=== PATIENT | male | born 1955 | race Caucasian/White ===

== ENCOUNTER 2022-07-14 11:39 | Inpatient (IN) ==
--- NOTE | 2022-07-14 12:03 | Emergency Department Note ---
Impression & Plan Peripheral arterial disease, DVT (deep venous thrombosis), engine mechanic (current) use of anticoagulants, Popliteal artery occlusion, right ED Provider Note Provider: João Andrew MD DATE OF SERVICE: 07/14/2022 CHIEF COMPLAINT: Right foot pain HISTORY OF PRESENT ILLNESS: Patient is a 67-year-old gentleman history of DVT, hypertension, tobacco use, and left lower extremity amputation presenting here today with 3 to 4 days of some pain in the right foot. Went to [facility] today for evaluation. Had blood work. There are some question based on the records available from [place] to bring with him with the patient had a recent subtherapeutic INR for his Coumadin but today it was slightly high. Evidently ultrasound there showed some evidence of a popliteal artery thrombus b ut reconstitution distally and he is recommended to follow-up with vascular surgery as an outpatient. Had prior vascular procedures with vascular surgery here and thus came here for further evaluation. Patient has had some on and off pain of the right foot. Feels gross sensation of the toes. Denies any trauma. Denies any other systemic symptoms of difficulty breathing, fever, chest pain, or abdominal pain. Amputation of the left leg above the knee in [address] Bolaños PAST MEDICAL HISTORY: As noted above MEDICATIONS: Reviewed home medications includes Coumadin but no antiplatelet agents SOCIAL HISTORY: Smoker PHYSICAL EXAM: GENERAL: alert and oriented in no acute distress on stretcher Head: normocephalic and atraumatic EYES: No injection, discharge or icterus. NECK: Trachea midline. ENT: Mucous membranes pink and moist. LUNGS: Airway patent. No retractions. Breath sounds clear with good air entry bilaterally. HEART: Regular rate and rhythm. No chest wall tenderness ABDOMEN: Soft and non-tender, without guarding or rebound. SKIN: Acyanotic, warm, dry, without rashes EXTREMITIES: With a left AKA. Patient's right lower extremity with some purplish discoloration of the sole of the foot into the toes. Some capillary refill there in under 2 seconds. Feels gross sensation. Unable to truly palpitate a PT or DP pulse. NEUROLOGICAL: No aphasia or slurred speech. No facial droop. Intact sensation of the right toes. EK bpm normal sinus rhythm. No PVC or PAC. No acute ST segment elevation or depression with a QTC of 437. CONTINUOUS CARDIAC MONITORING: was ordered and showed a heart rate of 60s-70s bpm in normal sinus rhythm Patient's laboratory studies and imaging reviewed. Differential includes DVT, musculoskeletal, infection, joint effusion, trauma, lymphedema, idiopathic, CHF, as well as other pathologies. IMPRESSION/MEDICAL DECISION MAKING: Patient with some pain in the right foot over the last several days. Pain mild at this point. Seen at outside hospital/[place] earlier today with a supratherapeutic INR. Ultrasound reportedly showed evidence of a popliteal artery thrombus with distal recall patient and was recommended to follow-up with vascular surgery as an outpatient and start aspirin. Patient came here for evaluation as he had prior vascular procedures here today. Presents with disc of the arterial ultrasound. Has intact sensation of the right toes but some purplish discoloration but there is capillary refill. Repeat blood work was sent here. Attempted obtain the formal report from the ultrasound at the outside facility today. US reports arrived showing a venous and arterial ultrasound of the right lower extremity showing evidence of a DVT in the proximal femoral vein to the posterior tibial vein occlusive in the midportion of the femoral vein and within the posterior tibial vein. The arterial shows evidence of occlusion or near occlusion at the distal portion of the popliteal artery through the tibial peroneal trunk and the anterior tibial artery. There is diminished arterial flow through the posterior tibial and dorsal pedis arteries likely via collateral circulation. Monophasic waveforms demonstrated in the PT and DP with no evidence of more proximal arterial structure high-grade stenosis. Unable to Doppler PT or DP pulses in the right foot. Discussed with the vascular surgery team here. Did upload the ultrasound images to our PACS system. Vascular YESI recommended we bring the patient him and start a heparin drip. Hospitalist was contacted. Basic blood work obtained here with an INR of 2.7 without significant anemia or leukocytosis. Patient given little to morphine for again his mild discomfort in his foot but is able to move his toes and has mildly delayed but intact capillary refill of the toes. DIAGNOSIS: Right lower extremity DVT, long-term anticoagulation, right popliteal artery thrombus, right foot pain DISPOSITION: Hospitalist will evaluate Patient was agreeable with this plan. 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 that worsened d/t DVT Family History Other No family history of adverse response to anesthesia Social History Smoking Status: Current every day smoker Second Hand Exposure: Yes ( smokes); Hx Alcohol Use: No (quit 2017) Hx Substance Use: Yes (smokes marijuana once or twice a month) Last Used Substance: Unknown Preferred Language: Pashto Communication Ability: Effective 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 Beliefs That Will Affect Care: None Current Living Situation: Spouse and Family Current Living Situation Comment: Lives with and son Feels Safe at Home: Yes Assistive Devices: Denture - Upper, Denture - Lower and Wheelchair Allergies Allergies Allergy/AdvReac Type Severity Reaction Status Date / Time No Known Allergies Allergy Verified 07/11/18 10:09 Home Meds Home Medications Medication Instructions Recorded Confirmed budesonide-formoterol HFA 160 1 puff inhalation BID 07/09/18 07/14/22 mcg-4.5 mcg/actuation aerosol inhaler (Symbicort) citalopram 40 mg tablet 10 mg PO HS 07/09/18 07/14/22 furosemide 40 mg tablet 20 mg PO QAM 07/09/18 07/14/22 ipratropium 20 mcg-albuterol 100 1 puff inhalation QID 07/09/18 07/14/22 mcg/actuation mist for inhalation lisinopril 20 mg tablet 20 mg PO QAM 07/09/18 07/14/22 omeprazole 20 mg tablet,delayed 20 mg PO BID 07/09/18 07/14/22 release warfarin 5 mg tablet See Rx Instructions .Route .COMPLEX 07/09/18 07/11/18 Results & Data (ED) Vital Signs Vital Signs - 24 hr 07/14/22 11:42 07/14/22 12:15 Temperature 36.5 C Temperature Source Temporal Artery Scan Pulse Rate 77 Respiratory Rate 16 16 Respiratory Effort / Characteristics Non-Labored Non-Labored Respiratory Depth Normal Normal Respiratory Pattern Regular Blood Pressure 180/85 H Blood Pressure Mean 116 Pulse Oximetry 98 Oxygen Delivery Method Room Air Sepsis Recent Fever Within 48 Hours No Sepsis New/Unexplained Change in Mental Status No Sepsis Action Taken by Nursing No Action Required Laboratory Data 07/14/22 12:10 07/14/22 12:10 Lab Results 07/14/22 07/14/22 07/14/22 Range/Units 12:10 12:10 12:10 WBC 6.80 (4.8-10.8) K/ul RBC 4.66 (4.63-6.08) M/uL Hgb 15.5 (14.0-18.0) g/dl Hct 42.9 (40.1-51.0) % MCV 92.1 (80.0-100.0) fL MCH 33.3 (25.0-34.0) pg MCHC 36.1 H (32.0-36.0) g/dL RDW Std Deviation 45.6 (36.4-46.3) fL RDW Coeff of Mala 13.4 (11.5-14.5) % Plt Count 237 (130-400) K/uL MPV 9.7 (9.4-12.4) fL Immature Gran % (Auto) 0.4 % Neut % (Auto) 59.2 % Lymph % (Auto) 31.2 % Rose[place] % (Auto) 7.1 % Eos % (Auto) 1.5 % Baso % (Auto) 0.6 % Neut # (Auto) 4.03 (1.4-6.5) K/uL Lymph # (Auto) 2.12 (1.2-3.4) K/uL Rose[place] # (Auto) 0.48 (0.24-0.82) K/uL Eos # (Auto) 0.10 (0-0.50) K/uL Baso # (Auto) 0.04 (0-0.2) K/uL Immature Gran # (Auto) 0.03 H (0.00-0.02) K/uL PT 26.9 H (9.0-12.0) Seconds INR 2.7 H (0.9-1.1) APTT 43.6 H (21.0-31.0) Seconds PTT Ratio 1.6 Sodium 139 (136-145) mmol/L Potassium 3.7 (3.5-5.1) mmol/L Chloride 102 (98-107) mmol/L Carbon Dioxide 29 (21-32) mmol/L Anion Gap 8 (3-11) BUN 9 (6-23) mg/dl Creatinine 0.87 (0.6-1.4) mg/dl Est Cr Clr Drug Dosing Not Reportable Est GFR ( Amer) 102.8 ml/min Est GFR (Non-Af Amer) 88.7 ml/min BUN/Creatinine Ratio 10.3 (10-20) Glucose 118 H (70-99(Fasting)) mg/dl Calcium 8.7 (8.5-10.1) mg/dl Total Bilirubin 0.6 (0.2-1.0) mg/dl AST 18 (13-39) U/L ALT 9 (7-52) U/L Alkaline Phosphatase 48 (34-104) U/L Total Protein 7.5 (6.0-8.3) gm/dl Albumin 4.3 (3.4-5.0) gm/dl Globulin 3.2 (2.5-4.0) gm/dl Albumin/Globulin Ratio 1.3 (0.9-2) SARS-CoV-2, RNA, NAAT (NEGATIVE) 07/14/22 Range/Units 12:10 WBC (4.8-10.8) K/ul RBC (4.63-6.08) M/uL Hgb (14.0-18.0) g/dl Hct (40.1-51.0) % MCV (80.0-100.0) fL MCH (25.0-34.0) pg MCHC (32.0-36.0) g/dL RDW Std Deviation (36.4-46.3) fL RDW Coeff of Mala (11.5-14.5) % Plt Count (130-400) K/uL MPV (9.4-12.4) fL Immature Gran % (Auto) % Neut % (Auto) % Lymph % (Auto) % Roseau % (Auto) % Eos % (Auto) % Baso % (Auto) % Neut # (Auto) (1.4-6.5) K/uL Lymph # (Auto) (1.2-3.4) K/uL Rose[place] # (Auto) (0.24-0.82) K/uL Eos # (Auto) (0-0.50) K/uL Baso # (Auto) (0-0.2) K/uL Immature Gran # (Auto) (0.00-0.02) K/uL PT (9.0-12.0) Seconds INR (0.9-1.1) APTT (21.0-31.0) Seconds PTT Ratio Sodium (136-145) mmol/L Potassium (3.5-5.1) mmol/L Chloride (98-107) mmol/L Carbon Dioxide (21-32) mmol/L Anion Gap (3-11) BUN (6-23) mg/dl Creatinine (0.6-1.4) mg/dl Est Cr Clr Drug Dosing Est GFR ( Amer) ml/min Est GFR (Non-Af Amer) ml/min BUN/Creatinine Ratio (10-20) Glucose (70-99(Fasting)) mg/dl Calcium (8.5-10.1) mg/dl Total Bilirubin (0.2-1.0) mg/dl AST (13-39) U/L ALT (7-52) U/L Alkaline Phosphatase (34-104) U/L Total Protein (6.0-8.3) gm/dl Albumin (3.4-5.0) gm/dl Globulin (2.5-4.0) gm/dl Albumin/Globulin Ratio (0.9-2) SARS-CoV-2, RNA, NAAT NEGATIVE (NEGATIVE) Administered Medications Heparin Sodium/Dextrose (Heparin Sodium/Dextrose) 25,000 units in 500 mls @ 22 mls/hr IV .[id number] [facility]; Protocol Stop: 08/13/22 13:14 Last Titration: 07/14/22 18:11 Dose: 1,100 units/hr, 22 mls/hr Documented By: ERIK Co-signed By: NICOLASA Admin: 07/14/22 14:09 Dose: 1,100 units/hr, 22 mls/hr Documented By: SR Co-signed By: TOHONO O'ODHAM Lactated Ringer's (Lr) 1,000 mls @ 125 mls/hr IV .Q8H SIN Stop: 08/13/22 18:09 Last Admin: 07/14/22 18:31 Dose: 125 mls/hr Documented By: MTM Discontinued Medications Heparin Sodium/Dextrose (Heparin Iv Adult Wt-Based Standard *No* Bolus Protocol) 1 each IV ONE ONE; Protocol Stop: 07/14/22 12:50 Last Admin: 07/14/22 14:10 Dose: Not Given Documented By: SR Hydralazine HCl (Hydralazine 10 Mg Tab) 10 mg PO ONE ONE Stop: 07/14/22 13:42 Last Admin: 07/14/22 14:10 Dose: 10 mg Documented By: SR Morphine Sulfate (Morphine Sulfate 4 Mg/Ml 1 Ml Carp\Vial) 4 mg IV NOW STA Stop: 07/14/22 12:36 Last Admin: 07/14/22 12:54 Dose: 4 mg Documented By: TOHONO O'ODHAM Discharge Plan Visit Data Chief Complaint: Leg Injury/Pain Stated Complaint: BLOOD CLOTS R LEG ED Provider: João Andrew Discharge Problem: Peripheral arterial disease, DVT (deep venous thrombosis), engine mechanic (current) use of anticoagulants, Popliteal artery occlusion, right Patient Disposition: Admitted As Inpatient Discharge Instructions Interventions: ED Discharge Assessment Last Done: 07/14/22 17:35 : DVT (deep venous thrombosis) Qualifiers: DVT location: lower extremity Laterality: right
[2022-07-14 12:29] LABS: Basophils # (auto) 0.04 K/uL (0-0.2); Basophils % (auto) 0.6 %; Eosinophils % (auto) 1.5 %; Hematocrit (blood only) 42.9 % (40.1-51.0); Hemoglobin 15.5 g/dl (14.0-18.0); Immature Granulocytes # (auto) 0.03 K/uL (0.00-0.02); Immature Granulocytes % (auto) 0.4 %; Lymphocytes # (auto) 2.12 K/uL (1.2-3.4); Lymphocytes % (auto) 31.2 %; Mean Corpuscular Hemoglobin 33.3 pg (25.0-34.0); Mean Corpuscular Hgb Conc 36.1 g/dL (32.0-36.0); Mean Corpuscular Volume 92.1 fL (80.0-100.0); Mean Platelet Volume 9.7 fL (9.4-12.4); Monocytes # (auto) 0.48 K/uL (0.24-0.82); Monocytes % (auto) 7.1 %; Neutrophils # (auto) 4.03 K/uL (1.4-6.5); Neutrophils % (auto) 59.2 %; Platelet Count 237 K/uL (130-400); RDW Coefficient of Variation 13.4 % (11.5-14.5); RDW Standard Deviation 45.6 fL (36.4-46.3); Red Blood Count 4.66 M/uL (4.63-6.08)
[2022-07-14] MEDS ORDERED: MoRPHine SULFATE 4 MG/ML 1 ML CARP\\VIAL IV STA (12:35)
[2022-07-14] MEDS ORDERED: Heparin IV Adult Wt-Based Standard *NO* Bolus Protocol IV ONE (12:49)
--- NOTE | 2022-07-14 12:54 | History & Physical Report ---
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 Thrombus appears occlusive in the midportion of the femoral vein as well as the posterior tibial vein. 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 Remaining structures show no additional thrombus. Impression: DVT extending from the proximal femoral vein through posterior tibial vein, occlusive in the midportion of the femoral vein and within the posterior tibial vein. Duplex completed 07/14/2022 at 8:36 AM. - Ultrasound lower extremity arterial duplex right, 07/14/2022 8:40 AM:: There is no detectable arterial flow in the distal portion of the popliteal artery thro ugh the tibioperoneal trunk and anterior tibial artery. Posterior tibial and dorsalis pedis arteries demonstrate dampened, monophasic waveforms. More proximal arterial structures show no evidence of high-grade stenosis. Impression: Occlusion or near occlusion from the distal portion of the popliteal artery, through the tibioperoneal trunk, and the anterior tibial artery. Diminished arterial flow through the posterior tibial and dorsalis pedis arteries likely via collateral circulation. -Patient reports several days of intermittent throbbing up to 8/10 right foot pain which worsens with attempted use. No pain at time of assessment, no PT/DP pulses capillary refill is sluggish around 2 seconds INR at [facility] 3.6, in house repeat 2.7 Vascular surgery consulted. NPO. Started on heparin drip. Given INR now in therapeutic range bolus deferred, INR reversal deferred at time of admission. Warfarin held Continue neurovascular checks Continue pain control, Tylenol with morphine for breakthrough Meds: Omeprazole 20mg daily, lisinopril 20mg am, Citalopram 10mg daily, warfarin, lasix 20mg daily. Hypertension Home lisinopril 20 mg held in the setting of possible vascular surgery Hydralazine 25 mg IV as needed for SBP greater than 180 GERD Convert omeprazole to Protonix daily Anxiety/depression Continue citalopram 10 mg daily Lower extremity edema Patient denies any history of heart attack, heart failure, CT but does take Lasix for lower extremity swelling. Lasix held COPD Patient reports he has a Symbicort inhaler and a albuterol inhaler but has not used this in several weeks/months. Denies any wheezing or shortness of breath. No acute exacerbation on admission Would resume daily maintenance inhaler on discharge and follow-up for routine outpatient follow-up, no acute management of COPD indicated at this time DVT prophylaxis: Heparin GTT CODE STATUS: Full code Disposition M/T for neurochecks Diet: N.p.o. (2) DVT (deep venous thrombosis): (3) Ischemic leg: (4) Peripheral arterial disease: (5) Chronic obstructive pulmonary disease: (6) GERD (gastroesophageal reflux disease): History of Present Illness Primary Care Provider: Gagan Dee MD Per record review at [facility] Ultrasound lower extremity venous duplex): Echogenic thrombus is seen extending from the proximal portion of the femoral vein through the tibioperoneal trunk and posterior tibial vein. Thrombus appears occlusive in the midportion of the femoral vein as well as the posterior tibial vein. 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 Remaining structures show no additional thrombus. Impression: DVT extending from the proximal femoral vein through posterior tibial vein, occlusive in the midportion of the femoral vein and within the posterior tibial vein. Duplex completed 07/14/2022 at 8:36 AM. Ultrasound lower extremity arterial duplex right, 07/14/2022 8:40 AM:: There is no detectable arterial flow in the distal portion of the popliteal artery through the tibioperoneal trunk and anterior tibial artery. Posterior tibial and dorsalis pedis arteries demonstrate dampened, monophasic waveforms. More proximal arterial structures show no evidence of high-grade stenosis. Impression: Occlusion or near occlusion from the distal portion of the popliteal artery, through the tibioperoneal trunk, and the anterior tibial artery. Diminished arterial flow through the posterior tibial and dorsalis pedis arteries likely via collateral circulation. Patient presented to [facility] emergency department for right foot pain of 1 week with throbbing nonradiating quality. Worse with weightbearing and exertion, no injury to the foot. Left AKA due to DVTs in the past. He is on Coumadin, was subtherapeutic several days ago and supratherapeutic on his check at the ER. At time of ER evaluation patient had brisk capillary refill and strong DP/PT pulses INR: 3.6. WBC 9.3. Hemoglobin 14.7. Creatinine 0.97 Patient DVT was felt to be Per pt: "A lot of pain in my right foot for 3-5 days". 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 Since that time has been on coumadin and did not have any issues with blood clots in the last few years. Was otherwise well until 3-5 days ago when R foot became muc h more painful. Thought it was new steps/sneakers, but had progressive pain in the R foot and ankle which was persistent and unremitting. Was seen in [place] and was going to be sent to [place], they did not want to be treated there so drove to [place] for vascular evaluation. Pain is intermittent, goes away with rest and worsens with activity. 8-9/10 at worst, 0/10 at time of bedside assessment. Foot intermittently feels 'asleep, like tingling'. NOrmal sensation to soft touch at time of exam. No ulcers or skin wounds No shortness of breath, no chest pain, fever, chills, night sweats, nausea, vomiting or diarrhea. No cough. INR low this past week, normally checks Q2W. Meds: Omeprazole 20mg daily, lisinopril 20mg am, Citalopram 10mg daily, warfarin, lasix 20mg daily. Warfarin: 7.5mg 5x/week, 10mg 2x/week. Denies missed doses. Symbicort, no recent use. No recent wheezing. Medical History: Reviewed Medications: Reviewed Surgical History: Reviewed Allergies: Reviewed Social History: no alcohol. Current smoker, started 1 year ago after quitting for 3 yeras, smoked since age 14. ~0.5ppd currently. Would like a nicotine patch. Code Status: Full Code Allergies Allergy/AdvReac Type Severity Reaction Status Date / Time No Known Allergies Allergy Verified 07/11/18 10:09 Home Medications Medication Instructions Recorded Confirmed Type alprazolam 0.5 mg tablet 0.5 mg PO DAILY PRN Anxiety 07/09/18 07/11/18 History budesonide-formoterol HFA 160 1 puff inhalation BID 07/09/18 07/11/18 History mcg-4.5 mcg/actuation aerosol inhaler (Symbicort) cilostazol 100 mg tablet 100 mg PO BID 07/09/18 07/11/18 History citalopram 40 mg tablet 40 mg PO HS 07/09/18 07/11/18 History furosemide 40 mg tablet 40 mg PO QAM 07/09/18 07/11/18 History ipratropium 20 mcg-albuterol 100 1 puff inhalation QID 07/09/18 07/11/18 History mcg/actuation mist for inhalation lisinopril 20 mg tablet 20 mg PO QAM 07/09/18 07/11/18 History omeprazole 20 mg tablet,delayed 20 mg PO BID 07/09/18 07/11/18 History release oxycodone-acetaminophen 5 mg-325 1 - 2 tab PO TID PRN Pain 07/09/18 07/11/18 History mg tablet warfarin 5 mg tablet 5 mg PO HS 07/09/18 07/11/18 History 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 that worsened d/t DVT Family History Other No family history of adverse response to anesthesia Social History Smoking Status: Current every day smoker Second Hand Exposure: Yes ( smokes); Hx Alcohol Use: No (quit 2016) Hx Substance Use: Yes (smokes marijuana once or twice a month) Last Used Substance: Unknown Preferred Language: German Communication Ability: Effective 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 NAD. Cooperative. HEENT: Atraumatic, normocephalic. Pulm: CTAB A&P. -wheezes, -rales, -rhonchi. Symmetrical chest rise. No increase in work of breathing. No respiratory distress. Cardiac: RRR, -mrg. Radial pulses intact and symmetrical. Abdominal: Nontender, nondistended, soft. BS present. Extremities: S/p left above-knee amputation. Right lower extremity: Hyperemic/purplish discoloration of plantar surface, and all 5 digits. Sluggish capillary refill less than 2 seconds. Sensation soft touch is intact to soft touch without deficit. Denies numbness/tingling/paresthesia at time of exam. No pain during exam. PT/DP pulses are not palpable. Results & Data Results & Data ([facility]) Vital Signs (Past 12 Hours) Vital Signs Temp Pulse Resp BP Pulse Ox O2 Del Method 07/14/22 12:15 16 07/14/22 11:42 36.5 C 77 16 180/85 H 98 Room Air PG Care Time/CCT Total # of Minutes Spent Total Time Spent with Patient: Total time spent is greater than 50% in coordination of care (as documented) at patient's floor/unit and/or counseling patient: Coding Level of Care Code 74584 INT INP/OBS CARE 3/75MIN Diagnoses Popliteal artery occlusion, right I70.201 DVT (deep venous thrombosis) I82.409 DVT location: lower extremity Laterality: right Ischemic leg I99.8 Peripheral arterial disease I73.9 Chronic obstructive pulmonary disease J44.9 GERD (gastroesophageal reflux disease) K21.9 (1) DVT (deep venous thrombosis) DVT location: lower extremity Laterality: right
[2022-07-14 12:56] LABS: Alanine Aminotransferase 9 U/L (7-52); Albumin Globulin Ratio 1.3 (0.9-2); Albumin Level 4.3 gm/dl (3.4-5.0); Alkaline Phosphatase 48 U/L (34-104); Anion Gap 8 (3-11); Aspartate Aminotransferase 18 U/L (13-39); BUN Creatinine Ratio 10.3 (10-20); Bilirubin,Total 0.6 mg/dl (0.2-1.0); Blood Urea Nitrogen 9 mg/dl (6-23); Calcium 8.7 mg/dl (8.5-10.1); Carbon Dioxide 29 mmol/L (21-32); Chloride 102 mmol/L (98-107); Est GFR (African American) 102.8 ml/min; Est GFR (Non-African American) 88.7 ml/min; Globulin 3.2 gm/dl (2.5-4.0); Glucose 118 mg/dl (70-99(Fasting)); Potassium 3.7 mmol/L (3.5-5.1); Sodium 139 mmol/L (136-145); Total Protein 7.5 gm/dl (6.0-8.3)
[2022-07-14 13:06] LABS: INR 2.7 (0.9-1.1); Partial Thromboplastin Ratio 1.6; Partial Thromboplastin Time 43.6 Seconds (21.0-31.0); Prothrombin Time 26.9 Seconds (9.0-12.0)
[2022-07-14] MEDS ORDERED: Patient's HEIGHT &/or WEIGHT Needed SCH (13:14)
[2022-07-14] MEDS ORDERED: NICOTINE 14 MG/24 HR PATCH TD PRN (13:40)
[2022-07-14] MEDS ORDERED: hydrALAZINE 10 MG TAB PO ONE (13:41)
[2022-07-14] MEDS: HEPARIN SODIUM/DEXTROSE 25,000 UNITS/500 ML BAG IV SCH (14:09)
[2022-07-14] MEDS ORDERED: ACETAMINOPHEN 325 MG TAB PO PRN (18:10)
[2022-07-14] MEDS ORDERED: hydrALAZINE HCL 20 MG/ML VIAL IV PRN (18:10)
[2022-07-14] MEDS: LACTATED RINGER'S 1,000 ML IV SCH (18:31)
[2022-07-14 20:33] LABS: INR 2.6 (0.9-1.1); Prothrombin Time 26.6 Seconds (9.0-12.0)
[2022-07-14 21:59] LABS: Partial Thromboplastin Ratio 2.7
[2022-07-14 22:12] LABS: Partial Thromboplastin Time 73.4 Seconds (21.0-31.0)
[2022-07-15] MEDS: LACTATED RINGER'S 1,000 ML IV SCH ×3 (03:07→21:34)
[2022-07-15 04:46] LABS: Basophils # (auto) 0.05 K/uL (0-0.2); Basophils % (auto) 0.8 %; Eosinophils # (auto) 0.15 K/uL (0-0.50); Eosinophils % (auto) 2.3 %; Hematocrit (blood only) 40.3 % (40.1-51.0); Hemoglobin 14.5 g/dl (14.0-18.0); Immature Granulocytes # (auto) 0.02 K/uL (0.00-0.02); Immature Granulocytes % (auto) 0.3 %; Lymphocytes # (auto) 2.35 K/uL (1.2-3.4); Lymphocytes % (auto) 36.2 %; Mean Corpuscular Hemoglobin 33.5 pg (25.0-34.0); Mean Corpuscular Volume 93.1 fL (80.0-100.0); Mean Platelet Volume 9.5 fL (9.4-12.4); Monocytes # (auto) 0.45 K/uL (0.24-0.82); Monocytes % (auto) 6.9 %; Neutrophils # (auto) 3.47 K/uL (1.4-6.5); Neutrophils % (auto) 53.5 %; Platelet Count 192 K/uL (130-400); RDW Coefficient of Variation 13.5 % (11.5-14.5); RDW Standard Deviation 46.3 fL (36.4-46.3); Red Blood Count 4.33 M/uL (4.63-6.08); White Blood Count 6.49 K/ul (4.8-10.8)
[2022-07-15 04:56] LABS: INR 2.2 (0.9-1.1); Prothrombin Time 22.7 Seconds (9.0-12.0)
[2022-07-15 05:00] LABS: Albumin Level 3.7 gm/dl (3.4-5.0); Bilirubin,Total 0.7 mg/dl (0.2-1.0); Calcium 7.9 mg/dl (8.5-10.1); Potassium 3.5 mmol/L (3.5-5.1)
[2022-07-15 05:06] LABS: Albumin Globulin Ratio 1.4 (0.9-2); BUN Creatinine Ratio 11.8 (10-20); Creatinine Clr Calc Pharmacy 81.2 ml/min; Est GFR (African American) 108.7 ml/min; Est GFR (Non-African American) 93.7 ml/min; Globulin 2.6 gm/dl (2.5-4.0); Total Protein 6.3 gm/dl (6.0-8.3)
[2022-07-15 05:12] LABS: Partial Thromboplastin Ratio 4.3
[2022-07-15 05:38] LABS: Partial Thromboplastin Time 117.9 Seconds (21.0-31.0)
[2022-07-15] MEDS: PANTOprazole 40 MG TAB PO SCH (08:54)
[2022-07-15] MEDS ORDERED: hydrALAZINE HCL 20 MG/ML VIAL IV PRN (09:06)
--- NOTE | 2022-07-15 11:12 | Electrocardiogram Report ---
Test Reason : Blood Pressure : / mmHG Vent. Rate : 064 BPM Atrial Rate : 064 BPM P-R Int : 154 ms QRS Dur : 076 ms QT Int : 424 ms P-R-T Axes : 036 -21 039 degrees QTc Int : 437 ms Normal sinus rhythm Septal infarct , age undetermined Abnormal ECG When compared with ECG of 11-APR-2014 09:23, Septal infarct is now Present Confirmed by Harris Caballero ([id number]) on 07/15/2022 11:12:18 AM Referred By: REFERRED SELF Confirmed By:Harris Caballero
--- NOTE | 2022-07-15 11:28 | Consultation ---
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 He now presents with RLE foot/ankle pain. Foot remains warm, with delayed cap refill and dependent rubor, and pulses are dopplerable, although monophasic. Imaging from outside facility demonstrates R pop and TP trunk occlusion. Discussed with Dr Bolaños. Will obtain CTA with runoff and make further recommendations at that time. History of Present Illness Reason for Consultation: PAD, foot pain Attending Physician: Gregg Pereyra MD History of Present Illness 67 yo m with multiple medical problems, including HTN, DVT, GERD, anemia, COPD, and extensive PAD, seen in consultation today for PAD and intermittent foot pain for past 2 weeks. Pt known to Dr Bolaños for multiple revascularization procedures to LLE, ultimately resulting in LLE AKA in 2014. He was lost to follow up after that time. Pt is a very poor historian. Pt states he has not had procedures in RLE in past. States he began having RLE foot/ankle pain approx 2 weeks ago. States has been tolerating it at home until yesterday, when he came to [facility] for eval. States the pain comes and goes, is sharp and aching. Does feel it is worse when his foot is elevated, but does not occur every time the foot is elevated. Improvement of the pain when his R foot is down. States his foot became dark red 1-2 weeks ago as well. Denies PIEDRA, fever, ches tpain, SOB, adb pain, N/V, claudication, open wounds to foot, other complaints. Does not ambulate fast or far enough to claudicate d/t his LLE AKA. Imaging demonstrates R pop and tp trunk occlusion. Allergies Allergy/AdvReac Type Severity Reaction Status Date / Time No Known Allergies Allergy Verified 07/11/18 10:09 Home Medications Medication Instructions Recorded Confirmed Type budesonide-formoterol HFA 160 1 puff inhalation BID 07/09/18 07/14/22 History mcg-4.5 mcg/actuation aerosol inhaler (Symbicort) citalopram 40 mg tablet 10 mg PO HS 07/09/18 07/14/22 History furosemide 40 mg tablet 20 mg PO QAM 07/09/18 07/14/22 History ipratropium 20 mcg-albuterol 100 1 puff inhalation QID 07/09/18 07/14/22 History mcg/actuation mist for inhalation lisinopril 20 mg tablet 20 mg PO QAM 07/09/18 07/14/22 History omeprazole 20 mg tablet,delayed 20 mg PO BID 07/09/18 07/14/22 History release warfarin 5 mg tablet See Rx Instructions .Route .COMPLEX 07/09/18 07/11/18 History Patient History Medical History (Updated 07/15/22 @ 11:25 by Shannan Velasquez PA-C) Anxiety Chronic obstructive pulmonary disease inhalers daily Deep vein thrombosis left leg Depression GERD (gastroesophageal reflux disease) Hypertension On anticoagulant therapy warfarin Osteoarthritis Severe peripheral arterial disease Surgical History History of lumbar spinal fusion hardware in place History of tooth extraction all teeth Hx of hand surgery no hardware 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 that worsened d/t DVT Family History Other No family history of adverse response to anesthesia Social History Smoking Status: Current every day smoker Second Hand Exposure: Yes ( smokes); Tobacco Cessation Education Requested by Patient: No Hx Alcohol Use: No Hx Substance Use: No Preferred Language: Urdu Communication Ability: Effective Search Marketing Analyst Required: No Beliefs That Will Affect Care: None Current Living Situation: Spouse Current Living Situation Comment: Lives with and son Other Information That Helps Us Care for You: No Feels Safe at Home: Yes Assistive Devices: None Review of Systems Review of Systems: All systems reviewed & are unremarkable except as noted in HPI & below Physical Exam Constitutional: WD/WN, vitals as above + thin and + disheveled; not in distress Neck: trachea midline Respiratory: normal respiratory effort; no labored breathing Auscultation: + diminished lung sounds (coarse sounds) Cardiovascular: Rate/Rhythm: regular rate and regular rhythm Vessels: femoral pulses present, posterior tibial pulses present (RLE dopplerable, LLE AKA), dorsalis pedis pulses present (nonpalpable RLE, + monophasic doppler signal, LLE AKA) and popliteal pulses present; + abnormal peripheral pulses Extremities: + abnormal capillary refill dependent rubor noted Gastrointestinal (Abdomen): Inspection/Auscultation: abdomen normal to inspection and normal bowel sounds Percussion/Palpation: abdomen soft; abdomen nontender Musculoskeletal: Extremities: strength 5/5 throughout and + amputation noted (LLE AKA) Skin: no rashes, warm and dry Neurologic: moves all extremities and awake; no focal motor deficits and not confused Psychiatric: Orientation: alert and oriented x 3 Affect: + anxious affect Results & Data ([facility]) Vital Signs (Past 12 Hours) Vital Signs Temp Pulse Pulse Pulse Resp BP Pulse Ox 07/15/22 07:30 60 07/15/22 07:19 36.8 C 63 16 171/76 H 92 07/15/22 02:50 36.6 C 60 18 172/80 H 96 07/14/22 23:18 58 L O2 Del Method 07/15/22 07:30 07/15/22 07:19 Room Air 07/15/22 02:50 Room Air 07/14/22 23:18
[2022-07-15] MEDS ORDERED: OPTIRAY 320 500ml IV ONE (12:48)
--- NOTE | 2022-07-15 13:24 | CT Scan Report ---
CT ANGIOGRAPHY OF THE ABDOMINAL AORTA AND BILATERAL LOWER EXTREMITY RUNOFF HISTORY: Right lower extremity ischemia. TECHNIQUE: CT angiography of the abdomen, pelvis, bilateral large images were performed following the intravenous administration of 119 cc of Optiray 320. Sagittal and coronal Maximum intensity projecti on images were also obtained. COMPARISON STUDY: CT angiography of the abdominal aorta and bilateral lower extremities 08/19/2013. FINDINGS: The heart is normal in size. Moderate calcified plaque within the normal caliber abdominal aorta. No evidence for abdominal aortic aneurysm. The bilateral renal arteries and celiac artery are widely patent. There is up to 50% stenosis within the proximal superior mesenteric artery which has d eveloped in the interval. The mid to distal superficial femoral artery and inferior mesenteric artery are patent. There is complete occlusion at the takeoff of the left common iliac artery. The left marta ac, common femoral, and superficial femoral arteries are completely occluded. There are small left ab dominal wall collaterals which results in reconstitution of flow at the proximal profunda femoris art jose. The mid to distal profunda femoris artery is patent. Postoperative changes consistent with a javid or sbqtu-pop-lhit amputation on the left. There is mild stenosis at the proximal right common iliac a rtery of up to 20%. There are areas of mild stenosis within the right external iliac artery of up to 20%. The right common femoral artery is widely patent. There is a focal area of 75% stenosis within t he mid right superficial femoral artery best seen image 521. The distal right superficial femoral art jose and proximal right popliteal artery are patent. Focal occlusion within the mid right popliteal ar belen on image 773. Small collaterals result in reperfusion of the proximal to mid posterior tibial ar belen. The distal popliteal artery, anterior tibial artery, and peroneal arteries are occluded. Mild dependent changes seen within the lung bases posteriorly. No pneumoperitoneum. No pneumatosis. T here is a punctate calcified granuloma within the right hepatic lobe. The gallbladder, pancreas, adre nal glands, and kidneys are within normal limits. Multiple punctate calcified granulomas within the s pleen. No retroperitoneal lymphadenopathy. No pelvic free fluid. Mild bladder wall thickening may be due to the enlarged prostate gland. This has improved. There is a sebaceous cyst within the proximal left thigh. Trace pelvic free fluid. No bowel wall thickening or obstruction. Normal appendix. IMPRESSION: 1. Focal occlusion within the mid right popliteal artery. The distal popliteal artery, right anterior tibial artery, and peroneal arteries are also occluded. There is reconstitution of flow within the p roximal to mid right posterior tibial artery due to the small collaterals. 2. Complete occlusion of the left iliac arteries, left common femoral artery, and left superficial fe moral artery. There is reconstitution of flow at the proximal left profunda femoris artery due to sma ll left abdominal wall collaterals. 3. Prior left ptboz-vhf-hrym amputation. 4. A focal area of 75% stenosis within the mid right superficial femoral artery. 5. Additional findings as described above.. 6. This report was called/faxed to the referring physician following dictation. ACT 112: Negative or not required by law. Electronically signed by: Dhaval Urbina M.D. 07/15/2022 1:22 PM
[2022-07-15 13:40] LABS: Partial Thromboplastin Ratio 2.3
[2022-07-15 13:55] LABS: Partial Thromboplastin Time 62.1 Seconds (21.0-31.0)
[2022-07-15] MEDS: HEPARIN SODIUM/DEXTROSE 25,000 UNITS/500 ML BAG IV SCH (14:04)
--- NOTE | 2022-07-15 14:46 | Hospitalist Progress Note ---
Date of Service July 15, 2022 Assessment & Plan (1) Popliteal artery occlusion, right: Plan: Severe bilateral disease documented by aortic runoff evaluation. He is status post left AKA. He remains on heparin infusion with right lower extremity ischemia. Appreciate vascular surgery consultation and recommendations. IV fluid rate has been tapered down. (2) DVT (deep venous thrombosis): Plan: Previous history. Coumadin therapy currently on hold while he is on a heparin drip. (3) Ischemic leg: Plan: Right lower extremity ischemia due to severe peripheral arterial disease documented by aortic runoff. Appreciate vascular surgery consultation and recommendations. (4) Peripheral arterial disease: Plan: As above (5) Chronic obstructive pulmonary disease: Plan: Currently stable. Continue current medical management (6) GERD (gastroesophageal reflux disease): Plan: Currently stable. Continue current medical management Plan Anticipate eventual discharge to home Admission and Anticipated Discharge Date Admission Date: July 14, 2022 Subjective Alert and oriented. No acute distress. He does have right lower extremity pain from ischemia however. He remains on a heparin drip. Aorta runoff evaluation has been completed. Severe bilateral disease documented. Appreciate vascular surgery consultation and recommendations. Review of Systems Review of Systems: Constitutional-no fever or chills ENT-no blurred vision, no double vision, no epistaxis, no sore throat Respiratory-no cough, no wheezing, no shortness of breath Cardiac-no palpitations, no chest pain, no syncope GI-no nausea, vomiting, diarrhea, melena, hematochezia -no urinary retention, no urinary incontinence, no dysuria, no hematuria Musculoskeletal-distal right lower extremity pain from ischemia. Left AKA status Skin-no bruising, no rashes, no pruritus Neuro-no isolated weakness, no paresthesia, no weakness Psych-no depression, no anxiety Physical Exam Physical Exam: General-alert and oriented x3, no fevers, no chills HEENT-head atraumatic and normocephalic, pupils equal and reactive to light, extraocular muscles intact Neck-no lymphadenopathy or thyromegaly, trachea midline Chest-clear to auscultation percussion. No rales wheezing or rhonchi Cardiac-regular rate and rhythm, normal S1 and S2, no murmurs Abdomen-normal bowel sounds, nontender, no hepatosplenomegaly Extremities-left AKA status. Right lower extremity reveals erythema involving the right foot. No distal palpable pulses. No overt cyanosis. Neuro-cranial nerves II through XII intact, motor and sensory function within normal limits, strength symmetrical , no focal deficits Psych-normal affect, normal mood Results & Data Results & Data ([facility]) Vital Signs (Past 12 Hours) Vital Signs Temp Pulse Pulse Pulse Resp BP Pulse Ox 07/15/22 08:45 07/15/22 07:30 60 07/15/22 07:19 36.8 C 63 16 171/76 H 92 07/15/22 02:50 36.6 C 60 18 172/80 H 96 O2 Del Method 07/15/22 08:45 Room Air 07/15/22 07:30 07/15/22 07:19 Room Air 07/15/22 02:50 Room Air Laboratory Results 07/15/22 04:36 07/15/22 04:36 PG Care Time/CCT Total # of Minutes Spent Total Time Spent with Patient: Total time spent is greater than 50% in coordination of care (as documented) at patient's floor/unit and/or counseling patient: Coding Level of Care Code 95979 SUB INP/OBS CARE 3/50MIN Diagnoses Popliteal artery occlusion, right I70.201 DVT (deep venous thrombosis) I82.409 DVT location: lower extremity Laterality: right Ischemic leg I99.8 Peripheral arterial disease I73.9 Chronic obstructive pulmonary disease J44.9 GERD (gastroesophageal reflux disease) K21.9 (1) DVT (deep venous thrombosis) DVT location: lower extremity Laterality: right
--- NOTE | 2022-07-15 22:03 | Ultrasound Report ---
US venous mapping LE RT HISTORY: 67 years-old Male pre bypass venous mapping study of the right lower extremity COMPARISON: CTA of same day TECHNIQUE: Multiple real-time sonographic images of the right lower extremity venous structures were obtained assessing grayscale appearance, color and spectral flow FINDINGS: GREATER SAPHENOUS VEIN: Width of the vessel and distance of the vessel from the skin surface are jeannie ured below with corresponding measurements respectively. groin= .72cm .91cm prox thigh= .67cm .56cm mid thigh= .57cm .57cm dist thigh= .54cm .72cm pop fossa= .56cm .59cm prox calf= .62cm .32cm mid calf= .42cm .19cm dist calf= .17cm .52cm ankle= .17cm .42cm LESSER SAPHENOUS VEIN: Width of the vessel and distance of the vessel from the skin surface are measu red below with corresponding measurements respectively. pop fossa= .21cm .39cm prox calf= .34cm .45cm mid calf= .60cm .53cm dist calf= .42cm .29cm IMPRESSION: Venous mapping study as above. ACT 112: Negative or not required by law. The above report was generated using voice recognition software. It may contain grammatical, syntax o r spelling errors. Electronically signed by: Marbin Levy M.D. 07/15/2022 10:01 PM
[2022-07-16 05:44] LABS: Basophils # (auto) 0.02 K/uL (0-0.2); Basophils % (auto) 0.5 %; Eosinophils # (auto) 0.02 K/uL (0-0.50); Eosinophils % (auto) 0.5 %; Hematocrit (blood only) 37.6 % (40.1-51.0); Hemoglobin 13.7 g/dl (14.0-18.0); Immature Granulocytes # (auto) 0.02 K/uL (0.00-0.02); Immature Granulocytes % (auto) 0.5 %; Lymphocytes # (auto) 0.38 K/uL (1.2-3.4); Lymphocytes % (auto) 9.8 %; Mean Corpuscular Hemoglobin 33.3 pg (25.0-34.0); Mean Corpuscular Hgb Conc 36.4 g/dL (32.0-36.0); Mean Corpuscular Volume 91.5 fL (80.0-100.0); Mean Platelet Volume 9.5 fL (9.4-12.4); Monocytes # (auto) 0.29 K/uL (0.24-0.82); Monocytes % (auto) 7.5 %; Neutrophils # (auto) 3.14 K/uL (1.4-6.5); Neutrophils % (auto) 81.2 %; Platelet Count 155 K/uL (130-400); RDW Standard Deviation 43.7 fL (36.4-46.3); Red Blood Count 4.11 M/uL (4.63-6.08); White Blood Count 3.87 K/ul (4.8-10.8)
[2022-07-16] MEDS: LACTATED RINGER'S 1,000 ML IV SCH (06:05)
[2022-07-16 06:09] LABS: Partial Thromboplastin Ratio 2.2
[2022-07-16 06:12] LABS: Potassium 3.3 mmol/L (3.5-5.1)
[2022-07-16 06:18] LABS: BUN Creatinine Ratio 7.8 (10-20); Creatinine Clr Calc Pharmacy 98.6 ml/min; Est GFR (African American) 116.6 ml/min; Est GFR (Non-African American) 100.6 ml/min
[2022-07-16 06:26] LABS: Partial Thromboplastin Time 60.3 Seconds (21.0-31.0)
[2022-07-16] MEDS: PANTOprazole 40 MG TAB PO SCH (08:07)
--- NOTE | 2022-07-16 09:13 | Surgery Progress Note ---
Date of Service July 16, 2022 Assessment & Plan (1) Severe peripheral arterial disease: Plan: Patient will need a femoral to distal bypass of the [facility] lower extremity. Saphenous vein is useable as a conduit. Will plan on either monday or monday of this week. Continue heparin at present. Admission and Anticipated Discharge Date Admission Date: July 14, 2022 Subjective Patient claims pain in foot not that bad. Physical Exam Constitutional: + cachectic; no acute distress Cardiovascular: Vessels: femoral pulses present; + posterior tibial pulses abnormal and + dorsalis pedis pulses abnormal Extremities: + abnormal capillary refill (decreased right foot) Musculoskeletal: Extremities: strength 5/5 throughout Neurologic: CN's II-XI intact bilaterally, normal sensation to monofilament and moves all extremities Psychiatric: Orientation: alert and oriented x 3 Results & Data ([facility]) Vital Signs (Past 12 Hours) Vital Signs Temp Pulse Pulse Pulse Resp BP Pulse Ox 07/16/22 09:00 160/70 H 07/16/22 07:41 37.3 C 93 H 14 170/70 H 95 07/16/22 07:29 98 H 07/16/22 03:37 37.0 C 86 18 176/71 H 96 07/15/22 23:38 92 H 07/15/22 23:13 36.7 C 81 18 164/82 H 98 07/15/22 22:54 O2 Del Method 07/16/22 09:00 07/16/22 07:41 Room Air 07/16/22 07:29 07/16/22 03:37 Room Air 07/15/22 23:38 07/15/22 23:13 Room Air 07/15/22 22:54 Room Air
[2022-07-16] MEDS ORDERED: POTASSIUM CHLORIDE CRTAB 20 MEQ TABCR PO STA (09:49)
[2022-07-16] MEDS: lisinopril 20 MG TAB PO SCH (10:08)
[2022-07-16 10:15] LABS: INR 1.5 (0.9-1.1); Prothrombin Time 15.4 Seconds (9.0-12.0)
[2022-07-16] MEDS ORDERED: ALUMINUM/MAGNESIUM SUSP 30 ML UDC PO PRN (11:23)
[2022-07-16] MEDS: MoRPHine SULFATE 2 MG/ML CARP IV PRN ×2 (12:06→21:47)
--- NOTE | 2022-07-16 14:33 | Hospitalist Progress Note ---
Date of Service July 16, 2022 Assessment & Plan (1) Popliteal artery occlusion, right: Plan: Severe bilateral disease documented by aortic runoff evaluation. He is status post left AKA. He remains on heparin infusion with right lower extremity ischemia. Appreciate vascular surgery consultation and recommendations. IV fluids discontinued (2) DVT (deep venous thrombosis): Plan: Previous history. No current DVT. Coumadin therapy currently on hold while he is on a heparin drip. (3) Ischemic leg: Plan: Right lower extremity ischemia due to severe peripheral arterial disease documented by aortic runoff. Appreciate vascular surgery consultation and recommendations. (4) Peripheral arterial disease: Plan: As above (5) Chronic obstructive pulmonary disease: Plan: Currently stable. Continue current medical management (6) GERD (gastroesophageal reflux disease): Plan: Currently stable. Continue current medical management Plan Anticipate eventual discharge to home or SNF Admission and Anticipated Discharge Date Admission Date: July 14, 2022 Subjective Alert and oriented. No complaints. Vascular surgery entry noted. Planned revascularization surgery of the right lower extremity next week. Continue heparin drip. INR is down to 1.5. Lisinopril restarted. Potassium replacement continues. Review of Systems Review of Systems: Constitutional-no fever or chills ENT-no blurred vision, no double vision, no epistaxis, no sore throat Respiratory-no cough, no wheezing, no shortness of breath Cardiac-no palpitations, no chest pain, no syncope GI-no nausea, vomiting, diarrhea, melena, hematochezia -no urinary retention, no urinary incontinence, no dysuria, no hematuria Musculoskeletal-distal right lower extremity pain from ischemia. Left AKA status Skin-no bruising, no rashes, no pruritus Neuro-no isolated weakness, no paresthesia, no weakness Psych-no depression, no anxiety Physical Exam Physical Exam: General-alert and oriented x3, no fevers, no chills HEENT-head atraumatic and normocephalic, pupils equal and reactive to light, extraocular muscles intact Neck-no lymphadenopathy or thyromegaly, trachea midline Chest-clear to auscultation percussion. No rales wheezing or rhonchi Cardiac-regular rate and rhythm, normal S1 and S2, no murmurs Abdomen-normal bowel sounds, nontender, no hepatosplenomegaly Extremities-left AKA status. Right lower extremity reveals improved appearing erythema involving the right foot. No distal palpable pulses. No overt cyanosis. Neuro-cranial nerves II through XII intact, motor and sensory function within normal limits, strength symmetrical , no focal deficits Psych-normal affect, normal mood Results & Data Results & Data ([facility]) Vital Signs (Past 12 Hours) Vital Signs Temp Pulse Pulse Pulse Resp BP Pulse Ox 07/16/22 12:01 36.5 C 79 16 176/70 H 96 07/16/22 09:18 07/16/22 09:00 160/70 H 07/16/22 07:41 37.3 C 93 H 14 170/70 H 95 07/16/22 07:29 98 H 07/16/22 03:37 37.0 C 86 18 176/71 H 96 O2 Del Method 07/16/22 12:01 Room Air 07/16/22 09:18 Room Air 07/16/22 09:00 07/16/22 07:41 Room Air 07/16/22 07:29 07/16/22 03:37 Room Air Laboratory Results 07/16/22 05:19 07/16/22 05:19 PG Care Time/CCT Total # of Minutes Spent Total Time Spent with Patient: Total time spent is greater than 50% in coordination of care (as documented) at patient's floor/unit and/or counseling patient: Coding Level of Care Code 60627 SUB INP/OBS CARE 3/50MIN Diagnoses Popliteal artery occlusion, right I70.201 DVT (deep venous thrombosis) I82.409 DVT location: lower extremity Laterality: right Ischemic leg I99.8 Peripheral arterial disease I73.9 Chronic obstructive pulmonary disease J44.9 GERD (gastroesophageal reflux disease) K21.9 (1) DVT (deep venous thrombosis) DVT location: lower extremity Laterality: right
[2022-07-16] MEDS ORDERED: ONDANSETRON INJ 2 MG/ML 2 ML VIAL IV PRN (15:17)
[2022-07-16] MEDS: HEPARIN SODIUM/DEXTROSE 25,000 UNITS/500 ML BAG IV SCH (18:03)
[2022-07-16] MEDS ORDERED: MELATONIN 3 MG TAB PO ONE (21:39)
[2022-07-17 06:25] LABS: Basophils # (auto) 0.03 K/uL (0-0.2); Basophils % (auto) 0.8 %; Eosinophils # (auto) 0.01 K/uL (0-0.50); Eosinophils % (auto) 0.3 %; Hemoglobin 14.2 g/dl (14.0-18.0); Immature Granulocytes # (auto) 0.01 K/uL (0.00-0.02); Immature Granulocytes % (auto) 0.3 %; Lymphocytes # (auto) 0.89 K/uL (1.2-3.4); Lymphocytes % (auto) 24.2 %; Mean Corpuscular Hemoglobin 32.9 pg (25.0-34.0); Mean Corpuscular Hgb Conc 36.4 g/dL (32.0-36.0); Mean Corpuscular Volume 90.5 fL (80.0-100.0); Mean Platelet Volume 10.2 fL (9.4-12.4); Monocytes # (auto) 0.37 K/uL (0.24-0.82); Monocytes % (auto) 10.1 %; Neutrophils # (auto) 2.37 K/uL (1.4-6.5); Neutrophils % (auto) 64.3 %; Platelet Count 142 K/uL (130-400); RDW Coefficient of Variation 12.9 % (11.5-14.5); RDW Standard Deviation 42.7 fL (36.4-46.3); Red Blood Count 4.31 M/uL (4.63-6.08); White Blood Count 3.68 K/ul (4.8-10.8)
[2022-07-17 06:46] LABS: Potassium 3.3 mmol/L (3.5-5.1)
[2022-07-17 06:52] LABS: BUN Creatinine Ratio 13.1 (10-20); Creatinine Clr Calc Pharmacy 101.8 ml/min; Est GFR (African American) 118.9 ml/min; Est GFR (Non-African American) 102.6 ml/min
[2022-07-17 07:52] LABS: Partial Thromboplastin Ratio 3.9
[2022-07-17 07:59] LABS: Partial Thromboplastin Time 107.4 Seconds (21.0-31.0)
[2022-07-17] MEDS: lisinopril 20 MG TAB PO SCH (08:14)
[2022-07-17] MEDS: PANTOprazole 40 MG TAB PO SCH (08:14)
[2022-07-17] MEDS: POTASSIUM CHLORIDE 10 MEQ TABCR PO SCH ×2 (10:07→20:00)
--- NOTE | 2022-07-17 13:51 | Hospitalist Progress Note ---
Date of Service July 17, 2022 Assessment & Plan (1) Popliteal artery occlusion, right: Plan: Severe bilateral disease documented by aortic runoff evaluation. He is status post left AKA. He remains on heparin infusion with right lower extremity ischemia. Appreciate vascular surgery consultation and recommendations. IV fluids have been discontinued . Revascularization procedure by vascular surgery will be done later this week. (2) DVT (deep venous thrombosis): Plan: Previous history. No current DVT. Coumadin therapy currently on hold while he is on a heparin drip. (3) Ischemic leg: Plan: Right lower extremity ischemia due to severe peripheral arterial disease documented by aortic runoff. Appreciate vascular surgery consultation and recommendations. Revascularization surgery later this week (4) Peripheral arterial disease: Plan: As above (5) Chronic obstructive pulmonary disease: Plan: Currently stable. Continue current medical management (6) GERD (gastroesophageal reflux disease): Plan: Currently stable. Continue current medical management (7) Hypokalemia: Plan: Oral supplementation. Serial labs Plan Revascularization procedure of the right lower extremity later this week. Anti cipate eventual discharge to home or SNF Admission and Anticipated Discharge Date Admission Date: July 14, 2022 Subjective Alert and oriented. No complaints. Potassium remains low and oral potassium supplements added. He remains on a heparin drip. He will have revascu larization surgery of the right lower extremity this week. The right foot looks better. Review of Systems Review of Systems: Constitutional-no fever or chills ENT-no blurred vision, no double vision, no epistaxis, no sore throat Respiratory-no cough, no wheezing, no shortness of breath Cardiac-no palpitations, no chest pain, no syncope GI-no nausea, vomiting, diarrhea, melena, hematochezia -no urinary retention, no urinary incontinence, no dysuria, no hematuria Musculoskeletal-distal right lower extremity pain from ischemia. Left AKA status Skin-no bruising, no rashes, no pruritus Neuro-no isolated weakness, no paresthesia, no weakness Psych-no depression, no anxiety Physical Exam Physical Exam: General-alert and oriented x3, no fevers, no chills HEENT-head atraumatic and normocephalic, pupils equal and reactive to light, extraocular muscles intact Neck-no lymphadenopathy or thyromegaly, trachea midline Chest-clear to auscultation percussion. No rales wheezing or rhonchi Cardiac-regular rate and rhythm, normal S1 and S2, no murmurs Abdomen-normal bowel sounds, nontender, no hepatosplenomegaly Extremities-left AKA status. Right lower extremity reveals improved appearing erythema involving the right foot. No distal palpable pulses. No overt cyanosis. Neuro-cranial nerves II through XII intact, motor and sensory function within normal limits, strength symmetrical , no focal deficits Psych-normal affect, normal mood Results & Data Results & Data ([facility]) Vital Signs (Past 12 Hours) Vital Signs Temp Pulse Pulse Pulse Resp BP Pulse Ox 07/17/22 11:08 36.7 C 83 16 170/76 H 95 07/17/22 10:30 07/17/22 07:21 37.2 C 77 16 150/72 H 97 07/17/22 07:06 56 L 07/17/22 03:02 37.1 C 64 18 142/71 H 91 O2 Del Method 07/17/22 11:08 Room Air 07/17/22 10:30 Room Air 07/17/22 07:21 Room Air 07/17/22 07:06 07/17/22 03:02 Room Air Laboratory Results 07/17/22 05:12 07/17/22 05:12 PG Care Time/CCT Total # of Minutes Spent Total Time Spent with Patient: Total time spent is greater than 50% in coordination of care (as documented) at patient's floor/unit and/or counseling patient: Coding Level of Care Code 67415 SUB INP/OBS CARE 3/50MIN Diagnoses Popliteal artery occlusion, right I70.201 DVT (deep venous thrombosis) I82.409 DVT location: lower extremity Laterality: right Ischemic leg I99.8 Peripheral arterial disease I73.9 Chronic obstructive pulmonary disease J44.9 GERD (gastroesophageal reflux disease) K21.9 Hypokalemia E87.6 (1) DVT (deep venous thrombosis) DVT location: lower extremity Laterality: right
[2022-07-17 16:10] LABS: Partial Thromboplastin Ratio 2.2
[2022-07-17 16:42] LABS: Partial Thromboplastin Time 60.1 Seconds (21.0-31.0)
[2022-07-17] MEDS: MoRPHine SULFATE 2 MG/ML CARP IV PRN (17:05)
[2022-07-17] MEDS ORDERED: MELATONIN 3 MG TAB PO ONE (19:48)
[2022-07-17] MEDS: CITALOPRAM 20 MG TAB PO SCH (20:05)
[2022-07-17] MEDS ORDERED: MELATONIN 3 MG TAB PO PRN (21:00)
[2022-07-18] MEDS: HEPARIN SODIUM/DEXTROSE 25,000 UNITS/500 ML BAG IV SCH (05:02)
[2022-07-18 06:20] LABS: Basophils # (auto) 0.04 K/uL (0-0.2); Basophils % (auto) 1.2 %; Eosinophils # (auto) 0.03 K/uL (0-0.50); Eosinophils % (auto) 0.9 %; Hematocrit (blood only) 39.7 % (40.1-51.0); Hemoglobin 14.4 g/dl (14.0-18.0); Immature Granulocytes # (auto) 0.01 K/uL (0.00-0.02); Immature Granulocytes % (auto) 0.3 %; Lymphocytes # (auto) 1.16 K/uL (1.2-3.4); Lymphocytes % (auto) 34.7 %; Mean Corpuscular Hemoglobin 32.5 pg (25.0-34.0); Mean Corpuscular Hgb Conc 36.3 g/dL (32.0-36.0); Mean Corpuscular Volume 89.6 fL (80.0-100.0); Mean Platelet Volume 10.8 fL (9.4-12.4); Monocytes # (auto) 0.44 K/uL (0.24-0.82); Monocytes % (auto) 13.2 %; Neutrophils # (auto) 1.66 K/uL (1.4-6.5); Neutrophils % (auto) 49.7 %; Platelet Count 133 K/uL (130-400); RDW Coefficient of Variation 13.4 % (11.5-14.5); RDW Standard Deviation 43.9 fL (36.4-46.3); Red Blood Count 4.43 M/uL (4.63-6.08); White Blood Count 3.34 K/ul (4.8-10.8)
[2022-07-18 06:47] LABS: BUN Creatinine Ratio 16.9 (10-20); Calcium 8.6 mg/dl (8.5-10.1); Creatinine Clr Calc Pharmacy 95.7 ml/min; Est GFR (African American) 115.9 ml/min; Potassium 3.3 mmol/L (3.5-5.1)
[2022-07-18 06:53] LABS: INR 1.2 (0.9-1.1); Prothrombin Time 12.4 Seconds (9.0-12.0)
[2022-07-18 08:49] LABS: Partial Thromboplastin Ratio 2.1
[2022-07-18] MEDS: PANTOprazole 40 MG TAB PO SCH (08:58)
[2022-07-18] MEDS: POTASSIUM CHLORIDE 10 MEQ TABCR PO SCH ×2 (08:58→20:02)
[2022-07-18] MEDS: lisinopril 20 MG TAB PO SCH (08:58)
[2022-07-18 09:27] LABS: Partial Thromboplastin Time 56.7 Seconds (21.0-31.0)
--- NOTE | 2022-07-18 18:05 | Hospitalist Progress Note ---
Date of Service July 18, 2022 Assessment & Plan (1) Popliteal artery occlusion, right: Plan: Severe bilateral disease documented by aortic runoff evaluation. He is status post left AKA. He remains on heparin infusion with right lower extremity ischemia. Appreciate vascular surgery consultation and recommendations. Revascularization procedure by vascular surgery will be done on 07/20 (2) DVT (deep venous thrombosis): Plan: Previous history. No current DVT. Coumadin therapy currently on hold while he is on a heparin drip. (3) Ischemic leg: Plan: Right lower extremity ischemia due to severe peripheral arterial disease documented by aortic runoff. Appreciate vascular surgery consultation and recommendations. Revascularization surgery as above (4) Peripheral arterial disease: Plan: As above should be on ASA, statin-will see if willing to take (5) Chronic obstructive pulmonary disease: Plan: with bilat wheezing -restart home maintenance inhaler and add prn Duoneb (6) GERD (gastroesophageal reflux disease): Plan: continue PPI (7) Hypokalemia: Plan: Oral supplementation. Serial labs ongoing (8) Hypertension: Plan: BP elevated somewhat continue lisinopril (9) Current smoker: Plan: committed to quitting smoking continue NRT Plan DVT proph-heparin gtt Dispo-continued stay, downgrade to med/surg He plans on returning home after surgery Admission and Anticipated Discharge Date Admission Date: July 14, 2022 Subjective Pt denies pain in foot. Denies CP, SOB, or nausea. Is eating dinner. Tele with SB and NSR rates 50-60s Review of Systems Review of Systems: All systems reviewed & are unremarkable except as noted in HPI & below Physical Exam Constitutional: WD/WN, vitals as above Eyes: + anicteric sclerae Neck: trachea midline, no thyromegaly Respiratory: normal respiratory effort Auscultation: + wheezes (bilateral); no rhonchi Cardiovascular: Rate/Rhythm: regular rate and regular rhythm Heart Sounds: no murmur Vessels: + posterior tibial pulses abnormal and + dorsalis pedis pulses abnormal Chest (Breasts): Chest: normal inspection of chest Gastrointestinal (Abdomen): normal bowel sounds, soft, nontender, no hepatosplenomegaly Musculoskeletal: Extremities: + extremities abnormal to inspection (left AKA) Skin: no rashes, warm and dry (right foot mild erythema) Neurologic: moves all extremities and awake; no focal motor deficits Psychiatric: A+Ox3, euthymic affect Lymphatic: no lymphedema Results & Data Results & Data ([facility]) Vital Signs (Past 12 Hours) Vital Signs Temp Pulse Pulse Resp BP Pulse Ox O2 Del Method 07/18/22 14:21 61 07/18/22 15:35 36.5 C 70 14 175/88 H 94 Room Air 07/18/22 11:29 36.7 C 73 16 172/80 H 95 Room Air 07/18/22 07:56 36.6 C 53 L 16 175/71 H 95 Room Air 07/18/22 07:53 Room Air 07/18/22 06:15 64 PG Care Time/CCT Total # of Minutes Spent Total Time Spent with Patient: Total time spent is greater than 50% in coordination of care (as documented) at patient's floor/unit and/or counseling patient: Coding Level of Care Code 18929 SUB INP/OBS CARE 2/35MIN Diagnoses Popliteal artery occlusion, right I70.201 DVT (deep venous thrombosis) I82.409 DVT location: lower extremity Laterality: right Ischemic leg I99.8 Peripheral arterial disease I73.9 Chronic obstructive pulmonary disease J44.9 GERD (gastroesophageal reflux disease) K21.9 Hypokalemia E87.6 Hypertension I10 Current smoker F17.200 (1) DVT (deep venous thrombosis) DVT location: lower extremity Laterality: right
[2022-07-18] MEDS ORDERED: ALBUT/IPRATROP 3MG/0.5MG NEB 3 ML VIAL NEB PRN (18:32)
[2022-07-18] MEDS: CITALOPRAM 20 MG TAB PO SCH (20:01)
[2022-07-18] MEDS: MoRPHine SULFATE 4 MG/ML 1 ML CARP\\VIAL IV PRN (20:02)
--- NOTE | 2022-07-19 06:58 | Anesthesiology Consultation ---
Date of Service July 19, 2022 Assessment & Plan (1) Encounter for pre-operative examination: Chart Review Chart Review: Pending: Refer to Additional Notes / Consult section and Patient NOT seen in Pre Admission Testing Consults Requested none History Surgery Operation Date: 07/20/22 12:30 Proposed Procedures p Right Femoral Distal Bypass - Patrick Bolaños MD Height/Weight Height: 5 ft 6 in Weight: 62.2 kg Allergies Allergy/AdvReac Type Severity Reaction Status Date / Time No Known Allergies Allergy Verified 07/11/18 10:09 Medications Home Medications Medication Instructions Recorded Confirmed Last Taken budesonide-formoterol HFA 160 1 puff inhalation BID 07/09/18 07/14/22 07/03/18 mcg-4.5 mcg/actuation aerosol inhaler (Symbicort) citalopram 40 mg tablet 10 mg PO HS 07/09/18 07/14/22 07/13/22 furosemide 40 mg tablet 20 mg PO QAM 07/09/18 07/14/22 07/13/22 ipratropium 20 mcg-albuterol 100 1 puff inhalation QID 07/09/18 07/14/22 07/04/18 mcg/actuation mist for inhalation lisinopril 20 mg tablet 20 mg PO QAM 07/09/18 07/14/22 07/13/22 omeprazole 20 mg tablet,delayed 20 mg PO BID 07/09/18 07/14/22 07/13/22 release warfarin 5 mg tablet See Rx Instructions .Route .COMPLEX 07/09/18 07/11/18 07/13/22 Active Medications Generic Name Dose Route Start Last Admin Trade Name Freq PRN Reason Stop Dose Admin Al Hydrox/Mg Hydrox/Simethicone 30 ml 07/16/22 11:23 07/16/22 11:34 Aluminum/Magnesium Susp 30 Ml Udc PO 08/15/22 11:22 30 ml Q6H PRN Administration Dyspepsia Citalopram Hydrobromide 10 mg 07/17/22 21:00 07/18/22 20:01 Citalopram 20 Mg Tab PO 08/16/22 20:59 10 mg HS SIN Administration Hydralazine HCl 10 mg 07/15/22 09:06 07/16/22 19:46 Hydralazine Hcl 20 Mg/Ml Vial IV 08/13/22 18:09 10 mg Q4H PRN Administration SBP >190 or DBP > 110 Heparin Sodium/Dextrose 25,000 units in 500 mls @ 13 mls/hr 07/14/22 13:15 07/19/22 06:50 Heparin Sodium/Dextrose IV 08/13/22 13:14 650 units/hr .Q24H SIN 13 mls/hr Titration Protocol 650 UNITS/HR Lisinopril 20 mg 07/16/22 10:00 07/18/22 08:58 Lisinopril 20 Mg Tab PO 08/15/22 09:59 20 mg QAM SIN Administration Morphine Sulfate 2 mg 07/14/22 13:38 07/17/22 17:05 Morphine Sulfate 2 Mg/Ml Carp IV 07/28/22 13:37 2 mg Q4H PRN Administration Moderate Pain (4,5,6) on NRS Morphine Sulfate 4 mg 07/14/22 13:38 07/18/22 20:02 Morphine Sulfate 4 Mg/Ml 1 Ml Carp\Vial IV 07/28/22 13:37 4 mg Q4H PRN Administration Severe Pain (7,8,9,10) on NRS Ondansetron HCl 4 mg 07/16/22 15:17 07/16/22 15:21 Ondansetron Inj 2 Mg/Ml 2 Ml Vial IV 08/15/22 15:16 4 mg Q4H PRN Administration Nausea Pantoprazole Sodium 40 mg 07/15/22 09:00 07/18/22 08:58 Pantoprazole 40 Mg Tab PO 08/14/22 08:59 40 mg DAILY SIN Administration Potassium Chloride 10 meq 07/17/22 10:00 07/18/22 20:02 Potassium Chloride 10 Meq Tabcr PO 08/16/22 09:59 10 meq BID SIN Administration Past Medical History Medical History (Updated 07/19/22 @ 07:00 by Declan Carolina MD) Anxiety Chronic obstructive pulmonary disease inhalers daily Current smoker Deep vein thrombosis left leg Depression GERD (gastroesophageal reflux disease) Hypertension Hypokalemia On oral replacement therapy On anticoagulant therapy warfarin Osteoarthritis Severe peripheral arterial disease Past Family History Family History Other No family history of adverse response to anesthesia Past Surgical History Surgical History History of lumbar spinal fusion hardware in place History of tooth extraction all teeth Hx of hand surgery no hardware 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 that worsened d/t DVT Social History Smoking Status: Current every day smoker tobacco type: cigarettes Hx Alcohol Use: No Hx Substance Use: No substance use type: marijuana Last Used Substance: Unknown Physical Exam Vital Signs Last Vital Signs Temp 36.5 C 07/19/22 00:00 Pulse 61 07/19/22 00:00 Resp 18 07/19/22 00:00 BP 142/66 H 07/19/22 00:00 Pulse Ox 93 07/19/22 00:00 O2 Del Method 07/19/22 00:00 Testing Laboratory Results 07/18/22 05:33 07/18/22 05:33 PT 12.4 Seconds (9.0-12.0) H 07/18/22 05:33 INR 1.2 (0.9-1.1) H 07/18/22 05:33 APTT 56.7 Seconds (21.0-31.0) H* 07/18/22 07:49 Electrocardiogram Date: 07/14/22 DICTATED BY:Harris Caballero MD Test Reason : Blood Pressure : / mmHG Vent. Rate : 064 BPM Atrial Rate : 064 BPM P-R Int : 154 ms QRS Dur : 076 ms QT Int : 424 ms P-R-T Axes : 036 -21 039 degrees QTc Int : 437 ms Normal sinus rhythm Septal infarct , age undetermined Abnormal ECG When compared with ECG of 11-APR-2014 09:23, Septal infarct is now Present Confirmed by Harris Caballero ([id number]) on 07/15/2022 11:12:18 AM
[2022-07-19 08:11] LABS: Basophils # (auto) 0.02 K/uL (0-0.2); Basophils % (auto) 0.6 %; Eosinophils # (auto) 0.04 K/uL (0-0.50); Eosinophils % (auto) 1.2 %; Hematocrit (blood only) 39.4 % (40.1-51.0); Hemoglobin 14.4 g/dl (14.0-18.0); Immature Granulocytes # (auto) 0.01 K/uL (0.00-0.02); Immature Granulocytes % (auto) 0.3 %; Lymphocytes % (auto) 37.6 %; Mean Corpuscular Hgb Conc 36.5 g/dL (32.0-36.0); Mean Corpuscular Volume 90.4 fL (80.0-100.0); Mean Platelet Volume 10.4 fL (9.4-12.4); Monocytes # (auto) 0.39 K/uL (0.24-0.82); Monocytes % (auto) 11.3 %; Platelet Count 136 K/uL (130-400); RDW Coefficient of Variation 13.2 % (11.5-14.5); RDW Standard Deviation 43.7 fL (36.4-46.3); Red Blood Count 4.36 M/uL (4.63-6.08); White Blood Count 3.46 K/ul (4.8-10.8)
[2022-07-19 08:30] LABS: Calcium 8.7 mg/dl (8.5-10.1); Magnesium 1.2 mg/dl (1.7-2.4); Potassium 3.7 mmol/L (3.5-5.1)
[2022-07-19 08:36] LABS: BUN Creatinine Ratio 13.9 (10-20); Creatinine Clr Calc Pharmacy 78.7 ml/min; Est GFR (African American) 106.9 ml/min; Est GFR (Non-African American) 92.3 ml/min
[2022-07-19 08:44] LABS: Partial Thromboplastin Ratio 1.8
[2022-07-19 08:47] LABS: Partial Thromboplastin Time 48.9 Seconds (21.0-31.0)
[2022-07-19] MEDS: POTASSIUM CHLORIDE 10 MEQ TABCR PO SCH ×2 (08:53→20:24)
[2022-07-19] MEDS: FLUTICASONE/VILANTEROL 100/25MCG 14 PUFFS/INHALER INH SCH (08:54)
[2022-07-19] MEDS: lisinopril 20 MG TAB PO SCH (08:54)
[2022-07-19] MEDS: PANTOprazole 40 MG TAB PO SCH (08:54)
[2022-07-19] MEDS: MAGNESIUM SULFATE / D5W 1 GM/100 ML BAG IV SCH ×3 (11:21→15:45)
[2022-07-19] MEDS ORDERED: SODIUM CHLORIDE 0.9% 250 ML IV PRN (11:22)
--- NOTE | 2022-07-19 14:18 | XCELERA ---
[id number] \\[id number]_[id number]
--- NOTE | 2022-07-19 17:42 | Hospitalist Progress Note ---
Date of Service July 19, 2022 Assessment & Plan (1) Popliteal artery occlusion, right: Plan: Severe bilateral disease documented by aortic runoff evaluation. He is status post left AKA. He remains on heparin infusion with right lower extremity ischemia. Appreciate vascular surgery consultation and recommendations. Revascularization procedure by vascular surgery will be done on 07/20 (2) DVT (deep venous thrombosis): Plan: Previous history. No current DVT. Coumadin therapy currently on hold while he is on a heparin drip. (3) Ischemic leg: Plan: Right lower extremity ischemia due to severe peripheral arterial disease documented by aortic runoff. Appreciate vascular surgery consultation and recommendations. Revascularization surgery as above (4) Peripheral arterial disease: Plan: As above should be on ASA, statin-will see if willing to take (5) Chronic obstructive pulmonary disease: Plan: with bilat wheezing persists but less than previous -continue home maintenance inhaler and prn Duoneb (6) GERD (gastroesophageal reflux disease): Plan: continue PPI (7) Hypokalemia: Plan: Oral supplementation and now improved likely from severe hypomagnesemia-replacing mag (8) Hypertension: Plan: BP elevated somewhat continue lisinopril (9) Current smoker: Plan: committed to quitting smoking continue NRT (10) Hypomagnesemia: Plan: severely low at 1.2 could be from PPI use -replace with 4 grams IV mag follow level in AM Plan DVT proph-heparin gtt Dispo-continued stay med/surg He plans on returning home after surgery as soon as possible Admission and Anticipated Discharge Date Admission Date: July 14, 2022 Subjective Pt feels well, no complaints. Denies SOB, CP. No pain in foot. Review of Systems Review of Systems: All systems reviewed & are unremarkable except as noted in HPI & below Physical Exam Constitutional: WD/WN, vitals as above Eyes: + anicteric sclerae Neck: trachea midline, no thyromegaly Respiratory: normal respiratory effort Auscultation: + wheezes (bilateral); no rhonchi Cardiovascular: Rate/Rhythm: regular rate and regular rhythm Heart Sounds: no murmur Vessels: + posterior tibial pulses abnormal and + dorsalis pedis pulses abnormal Chest (Breasts): Chest: normal inspection of chest Gastrointestinal (Abdomen): normal bowel sounds, soft, nontender, no hepatosplenomegaly Musculoskeletal: Extremities: + extremities abnormal to inspection (left AKA) Skin: no rashes, warm and dry (right foot mild erythema) Neurologic: moves all extremities and awake; no focal motor deficits Psychiatric: A+Ox3, euthymic affect Lymphatic: no lymphedema Results & Data Results & Data ([facility]) Vital Signs (Past 12 Hours) Vital Signs Temp Pulse Resp BP Pulse Ox O2 Del Method 07/19/22 14:50 36.8 C 76 18 152/80 H 94 Room Air 07/19/22 07:28 36.5 C 59 L 18 163/81 H 95 Room Air Laboratory Results 07/19/22 07/19/22 07/19/22 Range/Units 12:39 11:40 07:08 WBC (4.8-10.8) K/ul RBC (4.63-6.08) M/uL Hgb (14.0-18.0) g/dl Hct (40.1-51.0) % MCV (80.0-100.0) fL MCH (25.0-34.0) pg MCHC (32.0-36.0) g/dL RDW Std Deviation (36.4-46.3) fL RDW Coeff of Mala (11.5-14.5) % Plt Count (130-400) K/uL MPV (9.4-12.4) fL Immature Gran % (Auto) % Neut % (Auto) % Lymph % (Auto) % [place] % (Auto) % Eos % (Auto) % Baso % (Auto) % Neut # (Auto) (1.4-6.5) K/uL Lymph # (Auto) (1.2-3.4) K/uL [place] # (Auto) (0.24-0.82) K/uL Eos # (Auto) (0-0.50) K/uL Baso # (Auto) (0-0.2) K/uL Immature Gran # (Auto) (0.00-0.02) K/uL APTT (21.0-31.0) Seconds PTT Ratio Sodium 136 (136-145) mmol/L Potassium 3.7 (3.5-5.1) mmol/L Chloride 101 (98-107) mmol/L Carbon Dioxide 29 (21-32) mmol/L Anion Gap 6 (3-11) BUN 11 (6-23) mg/dl Creatinine 0.79 (0.6-1.4) mg/dl Est Cr Clr Drug Dosing 78.7 ml/min Est GFR ( Amer) 106.9 ml/min Est GFR (Non-Af Amer) 92.3 ml/min BUN/Creatinine Ratio 13.9 (10-20) Glucose 79 (70-99(Fasting)) mg/dl Calcium 8.7 (8.5-10.1) mg/dl Magnesium 1.2 L (1.7-2.4) mg/dl Blood Type AB Positive Blood Type Recheck AB Positive Antibody Screen NEGATIVE Crossmatch See Detail 07/19/22 07/19/22 Range/Units 07:08 07:08 WBC 3.46 L (4.8-10.8) K/ul RBC 4.36 L (4.63-6.08) M/uL Hgb 14.4 (14.0-18.0) g/dl Hct 39.4 L (40.1-51.0) % MCV 90.4 (80.0-100.0) fL MCH 33.0 (25.0-34.0) pg MCHC 36.5 H (32.0-36.0) g/dL RDW Std Deviation 43.7 (36.4-46.3) fL RDW Coeff of Mala 13.2 (11.5-14.5) % Plt Count 136 (130-400) K/uL MPV 10.4 (9.4-12.4) fL Immature Gran % (Auto) 0.3 % Neut % (Auto) 49.0 % Lymph % (Auto) 37.6 % [place] % (Auto) 11.3 % Eos % (Auto) 1.2 % Baso % (Auto) 0.6 % Neut # (Auto) 1.70 (1.4-6.5) K/uL Lymph # (Auto) 1.30 (1.2-3.4) K/uL [place]rie # (Auto) 0.39 (0.24-0.82) K/uL Eos # (Auto) 0.04 (0-0.50) K/uL Baso # (Auto) 0.02 (0-0.2) K/uL Immature Gran # (Auto) 0.01 (0.00-0.02) K/uL APTT 48.9 H* (21.0-31.0) Seconds PTT Ratio 1.8 Sodium (136-145) mmol/L Potassium (3.5-5.1) mmol/L Chloride (98-107) mmol/L Carbon Dioxide (21-32) mmol/L Anion Gap (3-11) BUN (6-23) mg/dl Creatinine (0.6-1.4) mg/dl Est Cr Clr Drug Dosing ml/min Est GFR ( Amer) ml/min Est GFR (Non-Af Amer) ml/min BUN/Creatinine Ratio (10-20) Glucose (70-99(Fasting)) mg/dl Calcium (8.5-10.1) mg/dl Magnesium (1.7-2.4) mg/dl Blood Type Blood Type Recheck Antibody Screen Crossmatch PG Care Time/CCT Total # of Minutes Spent Total Time Spent with Patient: Total time spent is greater than 50% in coordination of care (as documented) at patient's floor/unit and/or counseling patient: Coding Level of Care Code 72110 SUB INP/OBS CARE 2/35MIN Diagnoses Popliteal artery occlusion, right I70.201 DVT (deep venous thrombosis) I82.409 DVT location: lower extremity Laterality: right Ischemic leg I99.8 Peripheral arterial disease I73.9 Chronic obstructive pulmonary disease J44.9 GERD (gastroesophageal reflux disease) K21.9 Hypokalemia E87.6 Hypertension I10 Current smoker F17.200 Hypomagnesemia E83.42 (1) DVT (deep venous thrombosis) DVT location: lower extremity Laterality: right
[2022-07-19] MEDS: HEPARIN SODIUM/DEXTROSE 25,000 UNITS/500 ML BAG IV SCH (19:10)
[2022-07-19] MEDS: CITALOPRAM 20 MG TAB PO SCH (20:24)
[2022-07-20] MEDS ORDERED: ceFAZolin 2000MG 2,000 MG/15 ML SYR IV SCH (06:00)
[2022-07-20 07:45] LABS: BUN Creatinine Ratio 16.2 (10-20); Creatinine Clr Calc Pharmacy 91.5 ml/min; Est GFR (African American) 113.7 ml/min; Est GFR (Non-African American) 98.1 ml/min; Magnesium 1.9 mg/dl (1.7-2.4); Potassium 4.1 mmol/L (3.5-5.1)
[2022-07-20 07:53] LABS: Partial Thromboplastin Ratio 1.5; Partial Thromboplastin Time 41.9 Seconds (21.0-31.0)
[2022-07-20] MEDS: POTASSIUM CHLORIDE 10 MEQ TABCR PO SCH ×2 (08:35→20:50)
[2022-07-20] MEDS: lisinopril 20 MG TAB PO SCH (08:35)
[2022-07-20] MEDS: FLUTICASONE/VILANTEROL 100/25MCG 14 PUFFS/INHALER INH SCH (08:35)
[2022-07-20] MEDS: PANTOprazole 40 MG TAB PO SCH (08:36)
[2022-07-20] MEDS ORDERED: HEPARIN DRIP -- STOP ORDER ONE (09:00)
[2022-07-20] MEDS ORDERED: HEPARIN SOD (PORCINE) 1000 UNIT/ML ONE (12:01)
[2022-07-20] MEDS ORDERED: ONDANSETRON INJ 2 MG/ML 2 ML VIAL IV PRN (12:27)
[2022-07-20] MEDS ORDERED: ePHEDrine sulfate 50 MG/ML AMP IV PRN (12:27)
[2022-07-20] MEDS ORDERED: fentaNYL citrate 100 MCG/2 ML VIAL IV PRN (12:27)
[2022-07-20] MEDS ORDERED: ATROPINE SULFATE 0.1 MG/ML 10ML SYR IV PRN (12:27)
[2022-07-20] MEDS ORDERED: LACTATED RINGER'S 1,000 ML IV SCH (12:30)
--- NOTE | 2022-07-20 12:45 | History & Physical Bridge Note ---
Date of Service July 20, 2022 History & Physical Bridge Note Patient for right lower extremity revascularization. I have discussed the risks options and benefits of the procedure with the patient. The patient understands the risks options and benefits and agrees to the procedure. I have examined the patient, reviewed the History & Physical and in the interval since the performance of the History & Physical I have noted the following changes of clinical significance: no changes noted
[2022-07-20] MEDS ORDERED: PROPOFOL IV EMULSION 10 MG/ML 20 ML VIAL IV ONE (13:15)
[2022-07-20] MEDS ORDERED: MIDAZOLAM HCL 1 MG/ML 2ML VIAL ONE (13:15)
[2022-07-20] MEDS ORDERED: LIDOCAINE 2% MPF LOCAL 5 ML VIAL INFIL ONE (13:15)
[2022-07-20] MEDS ORDERED: ROCURONIUM BROMIDE 10 MG/ML 5 ML VIAL IV ONE ×6 (13:15→16:43)
[2022-07-20] MEDS ORDERED: DEXAMETHASONE SOD INJ 4 MG/ML VIAL ONE (13:15)
[2022-07-20] MEDS ORDERED: fentaNYL citrate 100 MCG/2 ML VIAL ONE ×2 (13:15→16:59)
[2022-07-20] MEDS ORDERED: LARYING-O-JET KIT (LTA) ONE (13:19)
[2022-07-20] MEDS ORDERED: ceFAZolin 330 MG/ML 1 GM VIAL ONE (13:34)
[2022-07-20] MEDS ORDERED: HEPARIN (PORCINE) 1000 UNIT/ML 10 ML (CATH LAB USE ONLY) ONE (13:34)
[2022-07-20] MEDS ORDERED: GELATIN SPONGE SZ 100 ONE (13:35)
[2022-07-20] MEDS ORDERED: THROMBIN FOR SOLN 20000 UNIT KIT ONE (13:35)
[2022-07-20] MEDS ORDERED: KETAMINE 50 MG/5 ML SYRINGE ONE (14:52)
[2022-07-20] MEDS ORDERED: SURGICEL ABSORB HEMOSTAT 2IN X 14IN TOP ONE (16:37)
[2022-07-20] MEDS ORDERED: GLYCOPYRROLATE 0.2 MG/ML VIAL ONE ×2 (16:54)
[2022-07-20] MEDS ORDERED: NEOSTIGMINE METHYLSULFATE 1 MG/ML 10ML VIAL ONE (16:54)
[2022-07-20] MEDS ORDERED: VISIPAQUE IV PRN (17:02)
--- NOTE | 2022-07-20 17:02 | Post Operative Brief Note ---
Immediate Post Op Note v1 Date of Surgery July 20, 2022 Pre & Post Diagnosis Operation Date: 07/20/22 12:30 Pre-Op Diagnosis: Right femoral popliteal occlusion Post-Op Diagnosis: Right femoral popliteal occlusion I identified the patient and participated in the time-out.: Yes Procedure Operation Date: 07/20/22 12:30 Actual Procedures p Right lower extremity arteriogram, Exploration of peroneal artery(Right) - Patrick Bolaños MD Surgeon Patrick Bolaños MD Wide Area Network Administrator MD Valeri MoralesMinarchick,PAC Estimated Blood Loss 300 Findings Consistent with Post-Op Diagnosis Drains Topete Catheter Anesthesia Type General Complications none Disposition Accompanied Patient To Recovery: No Disposition: Recovery Room
--- NOTE | 2022-07-20 17:16 | Critical Care Consultation ---
Date of Consultation July 20, 2022 Assessment & Plan (1) Severe peripheral arterial disease: (2) Ischemic leg: History of Present Illness Reason for Consultation: Status post femoropopliteal bypass Attending Physician: Sangeetha Kumar MD History of Present Illness 67-year-old male who presented to the hospital on 07/14/2022 due to severe pain in his right foot over the last several days. He was initially evaluated at an ER in [place] and ultimately came to [facility] for further care. He has been on a heparin infusion and was taken for femoropopliteal bypass of the right extremity today. His past medical history is significant for tobacco abuse and grade 1 diastolic dysfunction. He had an echo yesterday which revealed normal EF with grade 1 diastolic dysfunction Allergies Allergy/AdvReac Type Severity Reaction Status Date / Time No Known Allergies Allergy Verified 07/11/18 10:09 Home Medications Medication Instructions Recorded Confirmed Type budesonide-formoterol HFA 160 1 puff inhalation BID 07/09/18 07/14/22 History mcg-4.5 mcg/actuation aerosol inhaler (Symbicort) citalopram 40 mg tablet 10 mg PO HS 07/09/18 07/14/22 History furosemide 40 mg tablet 20 mg PO QAM 07/09/18 07/14/22 History ipratropium 20 mcg-albuterol 100 1 puff inhalation QID 07/09/18 07/14/22 History mcg/actuation mist for inhalation lisinopril 20 mg tablet 20 mg PO QAM 07/09/18 07/14/22 History omeprazole 20 mg tablet,delayed 20 mg PO BID 07/09/18 07/14/22 History release warfarin 5 mg tablet See Rx Instructions .Route .COMPLEX 07/09/18 07/11/18 History Patient History Medical History (Updated 07/19/22 @ 17:38 by Sangeetha Kumar MD) Anxiety Chronic obstructive pulmonary disease inhalers daily Current smoker Deep vein thrombosis left leg Depression GERD (gastroesophageal reflux disease) Hypertension Hypokalemia On oral replacement therapy On anticoagulant therapy warfarin Osteoarthritis Severe peripheral arterial disease Surgical History History of lumbar spinal fusion hardware in place History of tooth extraction all teeth Hx of hand surgery no hardware 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 that worsened d/t DVT Family History Other No family history of adverse response to anesthesia Social History Smoking Status: Current every day smoker Second Hand Exposure: Yes ( smokes); Tobacco Cessation Education Requested by Patient: No Hx Alcohol Use: No Hx Substance Use: No Preferred Language: Luxembourger Communication Ability: Effective Parking Enforcement Specialist Required: No Beliefs That Will Affect Care: None Current Living Situation: Spouse Current Living Situation Comment: Lives with and son Other Information That Helps Us Care for You: No Feels Safe at Home: Yes Assistive Devices: Prosthesis, Walker and Wheelchair Review of Systems Review of Systems: All systems reviewed & are unremarkable except as noted in HPI & below Results & Data Results & Data ([facility]) Vital Signs (Past 12 Hours) Vital Signs Temp Pulse Pulse Resp BP Pulse Ox O2 Del Method 07/20/22 11:52 36.8 C 61 20 178/85 H 96 Room Air 07/20/22 07:28 37.0 C 69 20 160/73 H 97 Room Air Coding Diagnoses Severe peripheral arterial disease I73.9 Ischemic leg I99.8
--- NOTE | 2022-07-20 17:29 | Operative Report ---
Post Operative Report Pre & Post Diagnosis Operation Date: 07/20/22 12:30 Pre-Op Diagnosis: Right femoral popliteal occlusion Post-Op Diagnosis: Right femoral popliteal occlusion I identified the patient and participated in the time-out.: Yes Procedure Operation Date: 07/20/22 12:30 Actual Procedures p Right lower extremity arteriogram, Exploration of perineal artery(Right) - Patrick Bolaños MD Surgeon Patrick Bolaños MD Unitizer MD aVleri MendezMinarchick, PAC Estimated Blood Loss 300 Findings Consistent with Post-Op Diagnosis On angiogram of the right lower extremity, short segment >75% stenosis of the mid SFA. Above knee popliteal occlusion with complete occlusion of the below knee popliteal, anterior tibialis, TP trunk, and posterior tibial artery. Occlusion of the proximal peroneal artery with distal reconstitution mid peroneal extending to the foot. On intra-operative exploration, the peroneal artery found to be diminutive in size, measuring 1-1.5mm in diameter. Specimens None Drains None Anesthesia Type General Complications None Disposition Accompanied Patient To Recovery: Yes Indications This is a 67M with PMH of PAD and prior left above knee amputation who has now developed critical limb ischemia of the right lower extremity with rest pain. Description of Procedure The patient was taken to the operating room and placed in the supine position. General endotracheal anesthesia was induced. The right groin and right leg were prepped and draped circumferentially in the usual sterile fashion. A longitudinal incision was made at the right groin over the palpable right common femoral artery using a #10 blade scalpel. Dissection was carried down through subcutaneous tissue using electrocautery to the level of the femoral sheath. The femoral sheath was opened with Metzenbaum scissions and the right common femoral artery was identified. Using modified Seldinger technique, a micropuncture needle was introduced into the right common femoral artery. The micropuncture wire was placed through the needle and the needle was then exchanged for the micropuncture 4F sheath. This was connected to extension tubing. A diagnostic angiogram of the right lower extremity was performed. There was short segment >75% stenosis of the mid SFA. Above knee popliteal occlusion with complete occlusion of the below knee popliteal, anterior tibialis, TP trunk, and posterior tibial artery. Occlusion of the proximal peroneal artery with distal reconstitution mid peroneal extending to the foot. On intra-operative exploration, the peroneal artery found to be diminutive in size, measuring 1-1.5mm in diameter. The lesion was not amenable to endovascular intervention. A 6-0 Prolene suture was placed in pusrse string fashion around the sheath and the sheath was removed. Hemostasis was obtained. Given the angiogram findings and adequate GSV to the level of mid calf, the decision was made to explore the peroneal artery for possible bypass. The medial right lower extremity below the knee 1cm inferior to the tibia was incised with a #10 blade scalpel. Dissection continued with electrocautery through subcutaneous tissue and fascia. The gastrocnemius and soleus were reflected inferiorly. The posterior tibial artery was identified and found to be occluded. The peroneal artery was identified and found to be diminutive in size measuring 1-1.5 mm in diameter. It unfortunately was not a adequate target for a distal bypass and the decision was made to not proceed further. During dissection, patient found to have extensive network of large venous collaterals and friable venous vessels in the right lower extremity below the knee, complicating dissect ion and requiring repair with 6-0 Prolene sutures. Hemostasis was obtained. The lower extremity wound and right groin wound were both closed with interrupted 2- 0 Vicryl sutures followed by 3-0 running subcutaneous Vicryl sutures. The skin was closed with anup. Patient was extubated in the OR in satisfactory condition. Dr. Bolaños was present and scrubbed for the entire procedure. I attest to the content of the Intraoperative Record and any orders documented therein. Any exceptions are noted below. Supervising Physician Co-Signing Physician Notes Patrick Bolaños MD
--- NOTE | 2022-07-20 17:52 | Anesthesiology Progress Note ---
Date of Service July 20, 2022 Anesthesia Post Procedure Vital Signs Vital Signs: Temp Pulse Pulse Resp BP BP Pulse Ox 07/20/22 17:35 98 H 18 150/83 H 91 07/20/22 17:45 95 H 20 139/88 94 07/20/22 17:25 98 H 18 169/89 H 92 07/20/22 17:15 37.1 C 99 H 18 160/86 H 95 07/20/22 11:52 36.8 C 61 20 178/85 H 96 07/20/22 07:28 37.0 C 69 20 160/73 H 97 07/19/22 23:06 56 L 178/75 H 07/19/22 22:00 36.7 C 66 20 197/82 H 95 O2 Del Method O2 Flow Rate 07/20/22 17:35 Nasal Cannula 4 07/20/22 17:45 Nasal Cannula 4 07/20/22 17:25 Nasal Cannula 4 07/20/22 17:15 Nasal Cannula 4 07/20/22 11:52 Room Air 07/20/22 07:28 Room Air 07/19/22 23:06 07/19/22 22:00 Room Air Pain Intensity Right Leg: Pain Intensity: 2 Right Lower Back: Pain Intensity: 2 Left Ankle: Pain Intensity: 4 Transfer of Care Handoff Completed per policy Notes Mental Status: alert / awake / arousable Patient Amnestic to Procedure: Yes Nausea / Vomiting: adequately controlled Pain: adequately controlled Airway Patency, RR, SpO2: stable & adequate BP & HR: stable & adequate Hydration State: stable & adequate Anesthetic Complications: no major complications apparent and Pt Satisfied with anesthetic care Notes: The patient is awake and comfortable. His vital signs are stable.
--- NOTE | 2022-07-20 18:19 | Hospitalist Progress Note ---
Date of Service July 20, 2022 Assessment & Plan (1) Popliteal artery occlusion, right: Plan: Severe bilateral disease documented by aortic runoff evaluation. He is status post left AKA. He was placed on heparin infusion with right lower extremity ischemia. Appreciate vascular surgery consultation and recommendations. Revascularization procedure by vascular surgery attempted on 07/20 but unfortunately was unsuccessful Plan now is to discharge patient once recovered from surgery and plan for BKA if his leg pain worsens in the future. -restart home coumadin and follow INR -start ASA, statin in AM -check CBC now and then again in AM; EBL 300 follow BMP in AM (2) DVT (deep venous thrombosis): Plan: Previous history. No current DVT. Coumadin therapy to now be restarted (3) Ischemic leg: Plan: Right lower extremity ischemia due to severe peripheral arterial disease documented by aortic runoff. Appreciate vascular surgery consultation and recommendations. as above (4) Peripheral arterial disease: Plan: As above start ASA, statin (5) Chronic obstructive pulmonary disease: Plan: with bilat wheezing now resolved -continue home maintenance inhaler and prn Duoneb (6) GERD (gastroesophageal reflux disease): Plan: continue PPI (7) Hypokalemia: Plan: Oral supplementation and now improved likely from severe hypomagnesemia-replaced mag (8) Hypertension: Plan: BP controlled continue lisinopril (9) Current smoker: Plan: committed to quitting smoking continue NRT (10) Hypomagnesemia: Plan: severely low at 1.2 could be from PPI use -replaced and now improved follow level in AM Plan DVT proph-heparin gtt now stopped, restarting coumadin Dispo-continued stay med/surg but possible discharge tomorrow if stable Admission and Anticipated Discharge Date Admission Date: July 14, 2022 Subjective Pt seen after return from Right lower extremity arteriogram, Exploration of peroneal artery(Right). He was having some pain in the right leg. Denies SOB, nausea, CP. Anxious to go home as soon as possible tomorrow. Advised not sure if this would be the case. I discussed his care with Vascular Surgery Review of Systems Review of Systems: All systems reviewed & are unremarkable except as noted in HPI & below Physical Exam Constitutional: WD/WN, vitals as above Eyes: + anicteric sclerae Neck: trachea midline, no thyromegaly Respiratory: normal respiratory effort Auscultation: no rhonchi and no wheezes Cardiovascular: Rate/Rhythm: regular rate and regular rhythm Heart Sounds: no murmur Vessels: + posterior tibial pulses abnormal and + dorsalis pedis pulses abnormal with dressing in place right leg Chest (Breasts): Chest: normal inspection of chest Gastrointestinal (Abdomen): normal bowel sounds, soft, nontender, no hepatosplenomegaly Musculoskeletal: Extremities: + extremities abnormal to inspection (left AKA) Skin: no rashes, warm and dry (right foot mild erythema) Neurologic: moves all extremities and awake; no focal motor deficits Psychiatric: A+Ox3, euthymic affect Lymphatic: no lymphedema Results & Data Results & Data ([facility]) Vital Signs (Past 12 Hours) Vital Signs Temp Pulse Pulse Resp BP BP Pulse Ox 07/20/22 17:55 37.1 C 94 H 23 143/94 H 95 07/20/22 17:35 98 H 18 150/83 H 91 07/20/22 17:45 95 H 20 139/88 94 07/20/22 17:25 98 H 18 169/89 H 92 07/20/22 17:15 37.1 C 99 H 18 160/86 H 95 07/20/22 11:52 36.8 C 61 20 178/85 H 96 07/20/22 07:28 37.0 C 69 20 160/73 H 97 O2 Del Method O2 Flow Rate 07/20/22 17:55 Nasal Cannula 4 07/20/22 17:35 Nasal Cannula 4 07/20/22 17:45 Nasal Cannula 4 07/20/22 17:25 Nasal Cannula 4 07/20/22 17:15 Nasal Cannula 4 07/20/22 11:52 Room Air 07/20/22 07:28 Room Air PG Care Time/CCT Total # of Minutes Spent Total Time Spent with Patient: Total time spent is greater than 50% in coordination of care (as documented) at patient's floor/unit and/or counseling patient: Coding Level of Care Code 26112 SUB INP/OBS CARE 2MIN Diagnoses Popliteal artery occlusion, right I70.201 DVT (deep venous thrombosis) I82.409 DVT location: lower extremity Laterality: right Ischemic leg I99.8 Peripheral arterial disease I73.9 Chronic obstructive pulmonary disease J44.9 GERD (gastroesophageal reflux disease) K21.9 Hypokalemia E87.6 Hypertension I10 Current smoker F17.200 Hypomagnesemia E83.42 (1) DVT (deep venous thrombosis) DVT location: lower extremity Laterality: right
[2022-07-20] MEDS ORDERED: WARFARIN SOD 10 MG TAB PO ONE (18:26)
[2022-07-20 18:34] LABS: Hematocrit (blood only) 36.2 % (42.0-52.0); Hemoglobin 13.1 g/dl (14.0-18.0); Mean Corpuscular Hemoglobin 32.8 pg (25.0-34.0); Mean Corpuscular Hgb Conc 36.2 g/dL (32.0-36.0); Mean Corpuscular Volume 90.5 fL (80.0-100.0); Mean Platelet Volume 10.1 fL (9.4-12.4); Platelet Count 143 K/uL (130-400); RDW Coefficient of Variation 13.2 % (11.5-14.5); RDW Standard Deviation 44.1 fL (36.4-46.3); White Blood Count 5.21 K/ul (4.8-10.8)
[2022-07-20 18:53] LABS: Basophils # (auto) 0.01 K/uL (0-0.2); Basophils % (auto) 0.2 %; Immature Granulocytes # (auto) 0.02 K/uL (0.01-0.20); Immature Granulocytes % (auto) 0.4 %; Lymphocytes # (auto) 0.69 K/uL (1.2-3.4); Lymphocytes % (auto) 13.2 %; Monocytes # (auto) 0.11 K/uL (0.11-0.59); Monocytes % (auto) 2.1 %; Neutrophils # (auto) 4.38 K/uL (1.40-6.50); Neutrophils % (auto) 84.1 %
[2022-07-20] MEDS: CITALOPRAM 20 MG TAB PO SCH (20:53)
[2022-07-20] MEDS: ceFAZolin 2000MG 2,000 MG/15 ML SYR IV SCH (20:55)
[2022-07-21] MEDS: MoRPHine SULFATE 4 MG/ML 1 ML CARP\\VIAL IV PRN (00:38)
[2022-07-21] MEDS: HEPARIN SODIUM/DEXTROSE 25,000 UNITS/500 ML BAG IV SCH (05:46)
[2022-07-21] MEDS: ceFAZolin 2000MG 2,000 MG/15 ML SYR IV SCH (05:51)
[2022-07-21 06:36] LABS: BUN Creatinine Ratio 11.6 (10-20); Calcium 8.5 mg/dl (8.5-10.1); Est GFR (African American) 113.1 ml/min; Est GFR (Non-African American) 97.5 ml/min; Potassium 4.3 mmol/L (3.5-5.1)
[2022-07-21 06:51] LABS: INR 1.1 (0.9-1.1); Prothrombin Time 11.5 Seconds (9.0-12.0)
[2022-07-21] MEDS: lisinopril 20 MG TAB PO SCH (08:36)
[2022-07-21] MEDS: PANTOprazole 40 MG TAB PO SCH (08:36)
[2022-07-21] MEDS: FLUTICASONE/VILANTEROL 100/25MCG 14 PUFFS/INHALER INH SCH (08:36)
[2022-07-21] MEDS: POTASSIUM CHLORIDE 10 MEQ TABCR PO SCH (08:36)
[2022-07-21] MEDS ORDERED: oxyCODONE HCL IR 5 MG TAB (IMMEDIATE RELEASE) PO PRN ×2 (08:47)
[2022-07-21] MEDS ORDERED: ASPIRIN 81 MG ECTAB PO SCH (09:00)
[2022-07-21] MEDS ORDERED: ATORVASTATIN 20 MG TAB PO SCH (09:00)
[2022-07-21 09:27] LABS: Basophils # (auto) 0.01 K/uL (0-0.2); Basophils % (auto) 0.1 %; Hematocrit (blood only) 33.6 % (42.0-52.0); Hemoglobin 12.1 g/dl (14.0-18.0); Immature Granulocytes # (auto) 0.02 K/uL (0.01-0.20); Immature Granulocytes % (auto) 0.3 %; Lymphocytes # (auto) 1.27 K/uL (1.2-3.4); Lymphocytes % (auto) 15.9 %; Mean Corpuscular Hemoglobin 33.1 pg (25.0-34.0); Mean Corpuscular Volume 91.8 fL (80.0-100.0); Mean Platelet Volume 10.4 fL (9.4-12.4); Monocytes # (auto) 0.65 K/uL (0.11-0.59); Monocytes % (auto) 8.1 %; Neutrophils # (auto) 6.04 K/uL (1.40-6.50); Neutrophils % (auto) 75.6 %; Platelet Count 145 K/uL (130-400); RDW Coefficient of Variation 13.3 % (11.5-14.5); RDW Standard Deviation 44.9 fL (36.4-46.3); Red Blood Count 3.66 M/uL (4.70-6.10); White Blood Count 7.99 K/ul (4.8-10.8)
[2022-07-21] MEDS ORDERED: ENOXAPARIN INJ 40 MG/0.4 ML SYR SQ SCH (13:30)
--- NOTE | 2022-07-21 13:49 | Surgery Progress Note ---
Date of Service July 21, 2022 Assessment & Plan (1) Severe peripheral arterial disease: Plan: Discussed with patient and . We could not do a bypass due to an extremely small distal peroneal artery. Would continue his anticoagulation for his DVT Would most likely need a BKA in the future if he develops severe ischemic pain of the right foot or ulcers with infection. and patient understand. Will see him in the office in two weeks. Admission and Anticipated Discharge Date Admission Date: July 14, 2022 Subjective Patient claims minimal pain in his right leg. Physical Exam Constitutional: WD/WN, vitals as above Cardiovascular: Rate/Rhythm: regular rate and regular rhythm Vessels: femoral pulses present; + posterior tibial pulses abnormal and + dorsalis pedis pulses abnormal Extremities: normal capillary refill (decreased on right) Musculoskeletal: Extremities: strength 5/5 throughout Skin: + incision (dressings intact and dry) Neurologic: CN's II-XI intact bilaterally and moves all extremities Psychiatric: Orientation: alert and oriented x 3 Results & Data ([facility]) Vital Signs (Past 12 Hours) Vital Signs Temp Pulse Pulse Resp BP BP Pulse Ox 07/21/22 13:34 36.6 C 94 H 58 L 18 153/74 H 142/61 H 97 07/21/22 12:52 36.6 C 94 H 58 L 18 142/61 H 97 07/21/22 08:00 07/21/22 06:43 36.6 C 58 L 18 142/61 H 97 07/21/22 04:00 37.1 C 77 20 112/56 L 97 O2 Del Method 07/21/22 13:34 07/21/22 12:52 07/21/22 08:00 Room Air 07/21/22 06:43 Room Air 07/21/22 04:00 Room Air
--- NOTE | 2022-07-21 13:59 | Discharge Summary ---
Date of Service July 21, 2022 Admission HPI Per Admitting Provider Per record review at [facility] Ultrasound lower extremity venous duplex): Echogenic thrombus is seen extending from the proximal portion of the femoral vein through the tibioperoneal trunk and posterior tibial vein. Thrombus appears occlusive in the midportion of the femoral vein as well as the posterior tibial vein. 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 Remaining structures show no additional thrombus. Impression: DVT extending from the proximal femoral vein through posterior tibial vein, occlusive in the midportion of the femoral vein and within the posterior tibial vein. Duplex completed 07/14/2022 at 8:36 AM. Ultrasound lower extremity arterial duplex right, 07/14/2022 8:40 AM:: There is no detectable arterial flow in the distal portion of the popliteal artery through the tibioperoneal trunk and anterior tibial artery. Posterior tibial and dorsalis pedis arteries demonstrate dampened, monophasic waveforms. More proximal arterial structures show no evidence of high-grade stenosis. Impression: Occlusion or near occlusion from the distal portion of the popliteal artery, through the tibioperoneal trunk, and the anterior tibial artery. Diminished arterial flow through the posterior tibial and dorsalis pedis arteries likely via collateral circulation. Patient presented to [facility] emergency department for right foot pain of 1 week with throbbing nonradiating quality. Worse with weightbearing and exertion, no injury to the foot. Left AKA due to DVTs in the past. He is on Coumadin, was subtherapeutic several days ago and supratherapeutic on his check at the ER. At time of ER evaluation patient had brisk capillary refill and strong DP/PT pulses INR: 3.6. WBC 9.3. Hemoglobin 14.7. Creatinine 0.97 Patient DVT was felt to be Per pt: "A lot of pain in my right foot for 3-5 days". 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 Since that time has been on coumadin and did not have any issues with blood clots in the last few years. Was otherwise well until 3-5 days ago when R foot became much more painful. Thought it was new steps/sneakers, but had progressive pain in the R foot and ankle which was persistent and unremitting. Was seen in [place] and was going to be sent to [facility], they did not want to be treated there so drove to [facility] for vascular evaluation. Pain is intermittent, goes away with rest and worsens with activity. 8-9/10 at worst, 0/10 at time of bedside assessment. Foot intermittently feels 'asleep, like tingling'. NOrmal sensation to soft touch at time of exam. No ulcers or skin wounds No shortness of breath, no chest pain, fever, chills, night sweats, nausea, vomiting or diarrhea. No cough. INR low this past week, normally checks Q2W. Meds: Omeprazole 20mg daily, lisinopril 20mg am, Citalopram 10mg daily, warfarin, lasix 20mg daily. Warfarin: 7.5mg 5x/week, 10mg 2x/week. Denies missed doses. Symbicort, no recent use. No recent wheezing. Medical History: Reviewed Medications: Reviewed Surgical History: Reviewed Allergies: Reviewed Social History: no alcohol. Current smoker, started 1 year ago after quitting for 3 yeras, smoked since age 14. ~0.5ppd currently. Would like a nicotine patch. Code Status: Full Code Discharge Exam Constitutional WD/WN, vitals as above Eyes + anicteric sclerae Neck trachea midline, no thyromegaly Respiratory normal respiratory effort Auscultation: no rhonchi and no wheezes Cardiovascular Rate/Rhythm: regular rate and regular rhythm Heart Sounds: no murmur Vessels: + posterior tibial pulses abnormal and + dorsalis pedis pulses abnormal Chest (Breasts) Chest: normal inspection of chest Gastrointestinal (Abdomen) normal bowel sounds, soft, nontender, no hepatosplenomegaly Musculoskeletal Extremities: + extremities abnormal to inspection (left AKA) Skin no rashes, warm and dry (right foot mild erythema) Neurologic moves all extremities and awake; no focal motor deficits Psychiatric A+Ox3, euthymic affect Lymphatic no lymphedema Discharge Data Allergies Allergy/AdvReac Type Severity Reaction Status Date / Time No Known Allergies Allergy Verified 07/11/18 10:09 Consultations 07/14/22 12:49 Consult Vascular Surgery Routine ED Decision to Admit Stat Procedures Performed Operation Date: 07/20/22 12:30 Actual Procedures p Right lower extremity arteriogram, Exploration of perineal artery(Right) - Patrick Bolaños MD Ordered Studies 07/15/22 11:29 CTA abd aorta runof w con [CT ang AA runof w inc wo stas] Routine 07/15/22 14:57 US venous mapping LE RT Routine 07/20/22 07:12 EV angio LE RT Routine Hospital Course (1) Popliteal artery occlusion, right: Severe bilateral disease documented by aortic runoff evaluation. He is status post left AKA. He was placed on heparin infusion with right lower extremity ischemia. Appreciate vascular surgery consultation and recommendations. Revascularization procedure by vascular surgery attempted on 07/20 but unfortunately was unsuccessful Plan now is to discharge patient once recovered from surgery and plan for BKA if his leg pain worsens in the future. -restart home coumadin and follow INR -start ASA, statin in AM -check CBC now and then again in AM; EBL 300 follow BMP in AM (2) DVT (deep venous thrombosis): With Right proximal femoral vein through tibioperoneal trunk and post tibial vein thrombus on outside DOppler prior to admission, occlusive in mid portion of femoral vein was on heparin gtt throughout hospitalization On coumadin already at home which was restarted here on 07/20 [place] with therapeutic dosing of Lovenox x 5 days after discharge check INR on Monday (3) Ischemic leg: Right lower extremity ischemia due to severe peripheral arterial disease documented by aortic runoff. Appreciate vascular surgery consultation and recommendations. as above (4) Peripheral arterial disease: As above start ASA, statin (5) Chronic obstructive pulmonary disease: with bilat wheezing now resolved -continue home maintenance inhaler and prn Duoneb (6) GERD (gastroesophageal reflux disease): continue PPI (7) Hypokalemia: Oral supplementation and now improved likely from severe hypomagnesemia-replaced mag (8) Hypertension: BP controlled continue lisinopril (9) Current smoker: committed to quitting smoking continue NRT (10) Hypomagnesemia: severely low at 1.2 could be from PPI use -replaced and now improved follow level in AM Plan DVT proph-heparin gtt now stopped, restarting coumadin Dispo-continued stay med/surg but possible discharge tomorrow if stable Home Health Attestation I certify that this patient is under my care and that I, or a physicians restaurant assistant working with me, had a face to-face encounter that meets the home health [id number] encounter requirements with this patient. The encounter with the patient was in whole, or in part, for the following med ical condition, which is the primary reason for home health care (list medical condition): RN incisions checks, medication monitoring I certify that, based on my findings, the following services are medically necessary home health services: My clinical findings support the need for the above services because: Skilled Nsg Assessment Surgical Incision / Wound Further, I certify that my clinical findings support that this patient is homebound (i.e. absences from home require considerable and taxing effort and are for medical reasons or [employer] services or infrequently or of short duration when for other reasons) because: Assistance of 1 Person for Ambulation/Activities Certification for Home Health Services: Based on the above findings, I certify that this patient is confined to the home and needs intermittent detention care, physical therapy and/or speech therapy or continues to need occupational therapy. The patient is under my care, and I have initiated the establishment of the plan of care. This patient will be followed by a physician who will periodically review the plan of care. Discharge Plan Discharge Items Patient Disposition: Home - Home Health Services Reason For Visit: POPLITERAL ATERIAL OCCLUSION, FEMORAL DVT Discharge Diagnosis: Popliteal artery occlusion, Right lower extremity DVT Activity: Resume your previous activity Non-emergency contact: Primary Care Provider and Surgeon Call non-emergency contact if: you have any medication questions, your symptoms worsen, your pain is concerning for you, you have a fever, your wound has increased redness, your wound has increased drainage and your wound pain has increased Follow-up/Referrals: Gagan Dee MD [Primary Care Provider] - (PLEASE CALL YOUR PRIMARY CARE PROVIDER TO SCHEDULE A DISCHARGE FOLLOW-UP APPOINTMENT WITHIN 7-10 DAYS.) Diet: Heart Healthy Addtl Attending Provider Instructions: You were admitted with a blood clot in the vein as well as occlusion in the arteries of the right leg. Unfortunately the artery was not able to be bypassed by Dr. Bolaños. You can take pain medicine as needed but if the pain in the foot worsens, you may need to have an amputation below the knee of the right leg. Please follow up with Dr. Bolaños-his office will contact you with an appointment date/time. You were started on a baby aspirin and a cholesterol pill called atorvastatin to help prevent future blockages of blood vessels. Because your coumadin had been stopped, it will take a few days for it to get back to the right level. In the meantime, please take Lovenox shots twice a day to keep your blood thin. Have your INR checked on Monday at the lab to see if it is back to the right level. Once it is at the right level, you can STOP taking the Lovenox injections. It is important for you to quit smoking immediately like you were able to in the past. You can use nicotine patches if you need when you go home. Your magnesium and potassium levels were quite low here as well. These were replaced and improved. Please have your doctor keep an eye on these levels after you leave. You should take a magnesium pill and a potassium pill every day. The lasix you're on can cause these levels to be low. Pending Studies at Discharge: No Stand-Alone Forms: My [facility], Smoking Cessation Medications and DC Order Prescriptions: New enoxaparin 60 mg/0.6 mL syringe 60 mg subcut BID Qty: 6 0RF acetaminophen 325 mg Tablet 650 mg PO Q4H PRN (Reason: pain) Qty: 30 0RF Rx Instructions: OTC atorvastatin 20 mg Tablet 20 mg PO QAM Qty: 30 0RF aspirin 81 mg Tablet,Delayed Release (Dr/Ec) 81 mg PO QAM Qty: 30 0RF Rx Instructions: OTC oxycodone 5 mg Tablet 5 - 10 mg PO Q4H PRN (Reason: moderate-severe pain) Qty: 30 0RF potassium chloride 10 mEq Tablet,Er Particles/Crystals 10 meq PO BID Qty: 30 0RF magnesium 250 mg tablet 250 mg PO DAILY Qty: 30 0RF Rx Instructions: OTC Continued furosemide 40 mg Tablet 20 mg PO QAM citalopram 40 mg Tablet 10 mg PO HS lisinopril 20 mg Tablet 20 mg PO QAM warfarin 5 mg Tablet See Rx Instructions .ROUTE .COMPLEX Rx Instructions: 7.5mg 5x/week, 10mg 2x/week budesonide-formoterol [Symbicort] 160-4.5 mcg/actuation Hfa Aerosol Inhaler 1 puff INHALATION BID omeprazole 20 mg Tablet,Delayed Release (Dr/Ec) 20 mg PO BID ipratropium-albuterol 20-100 mcg/actuation Mist 1 puff INHALATION QID Discharge Orders: Discharge Order (Routine); Ordered 07/21/22 Ordered By: Sangeetha Herring/Other Patient Handouts: Tips Cardiovascular Quit Smoking, Pain Management After Surgery, Hypertension and PAD, ED Peripheral Artery Disease (PAD) Admission Data Admit Date/Time: 07/14/22 13:32 Attending Provider: Sangeetha Kumar Admit Provider: Byron Gautam Primary Care Provider: Gagan Dee Other Providers: Byron Gautam ; Patrick Bolaños Other Interventions: Discharge Summary Assessment (RN) Last Done: 07/21/22 12:52 Coding Diagnoses Popliteal artery occlusion, right I70.201 DVT (deep venous thrombosis) I82.409 DVT location: lower extremity Laterality: right Ischemic leg I99.8 Peripheral arterial disease I73.9 Chronic obstructive pulmonary disease J44.9 GERD (gastroesophageal reflux disease) K21.9 Hypokalemia E87.6 Hypertension I10 Current smoker F17.200 Hypomagnesemia E83.42
[2022-07-21] MEDS ORDERED: ENOXAPARIN INJ 60 MG/0.6 ML SYR SQ SCH (14:00)
[2022-07-21] MEDS ORDERED: WARFARIN SOD 7.5 MG TAB PO SCH (16:00)
== END 2022-07-21 14:25 | disposition home health service (06) | DRG 301 ==
LOC: ED 11:39 → SUATTDRO 13:32 → 2W 13:32

== ENCOUNTER 2022-09-29 10:28 | Inpatient (IN) ==
--- NOTE | 2022-09-16 10:18 | PAT Medication Instructions ---
Medication Instructions Date of Service September 16, 2022 Home Medications Medication Instructions Recorded acetaminophen 325 mg tablet 650 mg PO Q4H PRN pain #30 tabs 07/21/22 aspirin 81 mg tablet,delayed 81 mg PO QAM #30 tabs 07/21/22 release atorvastatin 20 mg tablet 20 mg PO QAM #30 tabs 07/21/22 enoxaparin 60 mg/0.6 mL 60 mg (0.6 mL) subcut BID #6 mL 07/21/22 subcutaneous syringe oxycodone 5 mg tablet 5 - 10 mg PO Q4H PRN 07/21/22 moderate-severe pain #30 tabs potassium chloride 10 mEq 10 meq PO BID #30 tabs 07/21/22 tablet,extended release(part/cryst) budesonide-formoterol HFA 160 mcg-4.5 mcg/actuation aerosol inhaler (Symbicort) 1 puff inhalation BID PRN citalopram 40 mg tablet 10 mg PO HS furosemide 40 mg tablet 20 mg PO QAM lisinopril 20 mg tablet 20 mg PO QAM omeprazole 20 mg tablet,delayed release 20 mg PO BID warfarin 5 mg tablet See Rx Instructions .Route .COMPLEX acetaminophen 325 mg tablet 650 mg PO Q4H PRN aspirin 81 mg tablet,delayed release 81 mg PO QAM atorvastatin 20 mg tablet 20 mg PO QAM enoxaparin 60 mg/0.6 mL subcutaneous syringe 60 mg (0.6 mL) subcut BID oxycodone 5 mg tablet 5 - 10 mg PO Q4H PRN potassium chloride 10 mEq tablet,extended release(part/cryst) 10 meq PO BID magnesium 250 mg tablet 250 mg PO QAM ASK your prescriber and surgeon warfarin 5 mg tablet See Rx Instructions .Route .COMPLEX aspirin 81 mg tablet,delayed release 81 mg PO QAM enoxaparin 60 mg/0.6 mL subcutaneous syringe 60 mg (0.6 mL) subcut BID DO NOT take the morning of surgery furosemide 40 mg tablet 20 mg PO QAM lisinopril 20 mg tablet 20 mg PO QAM potassium chloride 10 mEq tablet,extended release(part/cryst) 10 meq PO BID magnesium 250 mg tablet 250 mg PO QAM Take morning of surgery With a small sip of water, OTHERWISE NOTHING TO EAT OR DRINK AFTER MIDNIGHT: budesonide-formoterol HFA 160 mcg-4.5 mcg/actuation aerosol inhaler (Symbicort) 1 puff inhalation BID PRN(if needed) omeprazole 20 mg tablet,delayed release 20 mg PO BID acetaminophen 325 mg tablet 650 mg PO Q4H PRN(if needed) atorvastatin 20 mg tablet 20 mg PO QAM oxycodone 5 mg tablet 5 - 10 mg PO Q4H PRN(if needed) Take evening before surgery budesonide-formoterol HFA 160 mcg-4.5 mcg/actuation aerosol inhaler (Symbicort) 1 puff inhalation BID PRN(if needed) citalopram 40 mg tablet 10 mg PO HS omeprazole 20 mg tablet,delayed release 20 mg PO BID acetaminophen 325 mg tablet 650 mg PO Q4H PRN(if needed) oxycodone 5 mg tablet 5 - 10 mg PO Q4H PRN(if needed) potassium chloride 10 mEq tablet,extended release(part/cryst) 10 meq PO BID Other Notes If you have any questions please call us at [phone] or [phone] or [phone] or [phone]
--- NOTE | 2022-09-21 10:33 | Anesthesiology Consultation ---
Date of Service September 21, 2022 Assessment & Plan (1) Encounter for pre-operative examination: Chart Review Chart Review: Acceptable Risk for Surgery and Patient seen in Pre Admission Testing - Check coags AM DOS Pt in wheelchair at [facility] appt- unable to get weight- weight per -Discussed with Dr. Ly- due to nature of procedure- pt can proceed as scheduled Per [facility] appt on 09/21/22, patient denies any recent travel or large group activities. Pt is NOT vaccinated for Covid. Will leave to surgeon's discretion if preop Covid testing needed. Educated on importance of using Covid precautions one week prior to surgery Right femoral distal bypass attempt, right LE arteriogram, exploration of peroneal artery (right) 07/20/22= Done under [place] with Grade 2 view with MAC #3. ETT #7.5. Teaching & Discussion Pre-Anesthesia Teaching/Discussion Notes: Instructed NPO after midnight before surgery,except medications with 15 cc of water. Medication instructions provided according to the [facility] guidelines. History Surgery Operation Date: 10/04/22 11:40 Proposed Procedures p Right Below Knee Amputation - Patrick Bolaños MD Height/Weight Height: 5 ft 6 in Weight: 59.874 kg Allergies Allergy/AdvReac Type Severity Reaction Status Date / Time No Known Allergies Allergy Verified 09/16/22 09:02 Medications Home Medications Medication Instructions Recorded Confirmed Last Taken citalopram 40 mg tablet 10 mg PO HS 07/09/18 09/16/22 07/13/22 furosemide 40 mg tablet 20 mg PO QAM 07/09/18 09/16/22 07/13/22 lisinopril 20 mg tablet 20 mg PO QAM 07/09/18 09/16/22 07/13/22 omeprazole 20 mg tablet,delayed 20 mg PO BID 07/09/18 09/16/22 07/13/22 release warfarin 5 mg tablet See Rx Instructions .Route .COMPLEX 07/09/18 09/16/22 07/13/22 acetaminophen 325 mg tablet 650 mg PO Q4H PRN pain #30 tabs 07/21/22 09/16/22 Unknown aspirin 81 mg tablet,delayed 81 mg PO QAM #30 tabs 07/21/22 09/16/22 Unknown release atorvastatin 20 mg tablet 20 mg PO QAM #30 tabs 07/21/22 09/16/22 Unknown potassium chloride 10 mEq 10 meq PO BID #30 tabs 07/21/22 09/16/22 Unknown tablet,extended release(part/cryst) amlodipine 5 mg tablet 5 mg PO DAILY 09/21/22 09/21/22 Unknown bumetanide 0.5 mg tablet 0.5 mg PO DAILY 09/21/22 09/21/22 Unknown oxycodone 5 mg tablet 7.5 mg PO Q4H PRN moderate-severe 09/21/22 09/21/22 Unknown pain Past Medical History Medical History Anemia Anxiety Chronic obstructive pulmonary disease Breathing stable - improved since smoking cessation Deep vein thrombosis left leg (around 2014), unknown cause on warfarin Right proximal femoral vein through tibioperoneal trunk and post tibial vein thrombus on outside Doppler prior to admission- 07/14/22 (possible subtherapeutic INR prior to 06/2022 [facility] admission) Depression GERD (gastroesophageal reflux disease) Well controlled and stable Hypertension Ischemic leg Severe peripheral arterial disease Right popliteal artery occlusion; severe bilateral disease documented by aortic runoff evaluation Attempted revascularization procedure 07/20/22- unsuccessful due to no graft site available Exercise / Class Metabolic Activity IV < 2 Limit ADL/Bedbound (usually wheelchair bound but can transfer self ) Past Family History Family History Other No family history of adverse response to anesthesia Past Surgical History Surgical History History of cataract surgery R/L History of lumbar spinal fusion hardware in place History of tooth extraction all teeth Hx of hand surgery no hardware Hx of surgical procedure Right lower extremity arteriogram, Exploration of peroneal artery (07/20/22): Grade 2 view, MAC#3, ETT 7.5 at [facility]. No issues noted per post-op anesthesia progress note. (unable to perform bypass per operative report) 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 that worsened d/t DVT Past Anesthesia History No Hx of Anesthesia Complications and No Family Hx of Anesthesia Complications History of PONV No Hx of PONV and No Hx of Motion Sickness Social History Smoking Status: Former smoker tobacco type: cigarettes Do You Dip or Chew Tobacco: No Smoking End Date: Jul 2022 Hx Alcohol Use: No Hx Substance Use: Yes substance use type: marijuana Substance Use Type Other:: uses not even weekly > advised Last Used Substance: Unknown Review of Systems Patient denies chest pain, shortness of breath, cough, wheezing, palpitations. No hx of seizures, stroke, [place], apnea/snoring. No hx of blood transfusions Physical Exam Vital Signs VITALS BP 151/73 P 90 TEMP 99.4 SP02 95% RESP 16 Constitutional no acute distress ENMT Mouth: no TMJ clicking Thyromental Distance: > or= 3.5 Finger Breadths (4.0) Mallampati Class: I Full dentures on top and bottom Neck neck extension not limited Respiratory normal respiratory effort; no respiratory distress Auscultation: lungs clear to auscultation bilaterally; no wheezes Cardiovascular Rate/Rhythm: regular rate and regular rhythm Heart Sounds: no murmur Vessels: no carotid bruit Musculoskeletal Spine: no pain with cervical ROM Extremities: extremities normal to inspection Psychiatric Orientation: alert Lab Results Anesthesia Preop Results Results Anesthesia Widget: WBC 8.63 K/ul (4.8-10.8) 09/21/22 Hgb 12.2 g/dl (14.0-18.0) L 09/21/22 Hct 34.6 % (42.0-52.0) L 09/21/22 Plt 254 K/uL (130-400) 09/21/22 Na 134 mmol/L (136-145) L 09/21/22 K 4.2 mmol/L (3.5-5.1) 09/21/22 Cl 98 mmol/L (98-107) 09/21/22 CO2 27 mmol/L (21-32) 09/21/22 BUN 14 mg/dl (6-23) 09/21/22 Creat 1.03 mg/dl (0.6-1.4) 09/21/22 Glucose Level 99 mg/dl (70-99(Fasting)) 09/21/22 PT 16.8 Seconds (9.0-12.0) H 09/21/22 PTT 40.4 Seconds (21.0-31.0) H 09/21/22 INR 1.6 (0.9-1.1) H 09/21/22 Blood Type AB Positive 09/21/22 Antibody Screen NEGATIVE 09/21/22 Testing Electrocardiogram Date: 09/21/22 Findings: + NSR @ (89bpm ) Normal EKG per cardio Chest X-Ray Date: 09/21/22 FINDINGS: No pneumothorax. No pleural effusions. The cardiac silhouette is normal in size. There are old, healed left-sided rib fractures. Mild interstitial thickening, unchanged. This is likely chronic. No new focal lung consolidations to suggest a pneumonia. No evidence for pulmonary edema. A few small linear scarlike densities noted within the right middle lobe and lingula. Mild focal narrowing within the mid trachea. Mild left deviation. This remains unchanged and may be due to a thyroid goiter. (Comparison to 2014 CXR) IMPRESSION: 1. Chronic changes as described above. No acute process within the chest. 2. Mild focal narrowing within the mid trachea again noted. Echocardiogram Date: 07/19/22 EF: 55-60% LV Function: normal RWMA: + none Other Findings: + LVH (borderline/concentric) and + diastolic dysfunction (Grade I ) Mild TR. COVID-19 Risk Screen Screening Information COVID-19 Screen Date: 09/21/22 Exposure 21 Days Family/Household +COVID Last 21 Days: No Exposure 10 Days Any COVID Exposure Last 10 Days: No Symptoms Last 10 Days Experienced COVID Sx Last 10 Days: No + COVID 0-90 Days COVID + in Last 0-90 Days: No Risk Plan COVID Risk Plan: No Risk Identified Patient Education COVID Preop Screening Education Complete: Yes
[~2022-09-29 10:28] MED LIST: ACETAMINOPHEN 1,000 MG/100 ML VIAL IV STA; ATROPINE SULFATE 0.1 MG/ML 10ML SYR IV PRN; CEFAZOLIN 2,000 MG/15 ML SYR IV SCH; ONDANSETRON INJ 2 MG/ML 2 ML VIAL IV PRN; ePHEDrine sulfate 50 MG/ML AMP IV PRN; fentaNYL citrate PF 100 MCG/2 ML VIAL IV PRN
[2022-09-29] MEDS: LACTATED RINGER'S 1,000 ML IV SCH ×4 (11:40→21:16)
[2022-09-29 11:44] LABS: INR 1.2 (0.9-1.1); Partial Thromboplastin Ratio 1.3
--- NOTE | 2022-09-29 11:49 | History & Physical Report ---
Date of Service September 29, 2022 Assessment & Plan (1) Extremity atherosclerosis with resting pain: Plan: Due to his worsening rest pain and healing of the wound we recommended a below- knee amputation of the right lower extremity. He understands that there may be nonhealing of the below the knee amputation secondary to his vascular disease. He understood the risks options benefits of this procedure and agreed to go ahead with the below-knee amputation. History of Present Illness Chief Complaint: Ischemic right foot Primary Care Provider: Gagan Dee MD I had the pleasure of seeing Americo today for follow-up. As you know he is a 87-year-old gentleman who underwent exploration of his infrapopliteal arteries of his right lower extremity for an attempted bypass for limb salvage. His vessels were not usable. He has a lower leg wound on the right side which is nonhealing as well as developing worsening rest pain in the right foot. He claims that his right foot pain wakes him up frequently however his says he wakes up few times at night due to pain in the right foot. Allergies Allergy/AdvReac Type Severity Reaction Status Date / Time No Known Allergies Allergy Verified 09/29/22 11:08 Home Medications Medication Instructions Recorded Confirmed Type citalopram 40 mg tablet 10 mg PO HS 07/09/18 09/29/22 History furosemide 40 mg tablet 20 mg PO QAM 07/09/18 09/29/22 History lisinopril 20 mg tablet 20 mg PO QAM 07/09/18 09/29/22 History omeprazole 20 mg tablet,delayed 20 mg PO BID 07/09/18 09/29/22 History release warfarin 5 mg tablet See Rx Instructions .Route .COMPLEX 07/09/18 09/29/22 History acetaminophen 325 mg tablet 650 mg PO Q4H PRN pain #30 tabs 07/21/22 09/29/22 Rx aspirin 81 mg tablet,delayed 81 mg PO QAM #30 tabs 07/21/22 09/29/22 Rx release atorvastatin 20 mg tablet 20 mg PO QAM #30 tabs 07/21/22 09/29/22 Rx potassium chloride 10 mEq 10 meq PO BID #30 tabs 07/21/22 09/29/22 Rx tablet,extended release(part/cryst) amlodipine 5 mg tablet 5 mg PO DAILY 09/21/22 09/29/22 History bumetanide 0.5 mg tablet 0.5 mg PO DAILY 09/21/22 09/29/22 History oxycodone 5 mg tablet 7.5 mg PO Q4H PRN moderate-severe 09/21/22 09/29/22 History pain Past Med/Surg History Medical History Anemia Anxiety Chronic obstructive pulmonary disease Breathing stable - improved since smoking cessation Deep vein thrombosis left leg (around 2014), unknown cause on warfarin Right proximal femoral vein through tibioperoneal trunk and post tibial vein thrombus on outside Doppler prior to admission- 07/14/22 (possible subtherapeutic INR prior to 06/2022 [facility] admission) Depression GERD (gastroesophageal reflux disease) Well controlled and stable Hypertension Ischemic leg Severe peripheral arterial disease Right popliteal artery occlusion; severe bilateral disease documented by aortic runoff evaluation Attempted revascularization procedure 07/20/22- unsuccessful due to no graft site available Surgical History History of cataract surgery R/L History of lumbar spinal fusion hardware in place History of tooth extraction all teeth Hx of hand surgery no hardware Hx of surgical procedure Right lower extremity arteriogram, Exploration of peroneal artery (07/20/22): Grade 2 view, MAC#3, ETT 7.5 at [facility]. No issues noted per post-op anesthesia progress note. (unable to perform bypass per operative report) 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 that worsened d/t DVT Family History Other No family history of adverse response to anesthesia Social History Smoking Status: Former smoker Smoking End Date: Jul 2022; Second Hand Exposure: No; Do You Dip or Chew Tobacco: No; Tobacco Cessation Education Requested by Patient: No Hx Alcohol Use: No Hx Substance Use: Yes Last Used Substance: Unknown Substance Use Type Other:: uses not even weekly > advised Preferred Language: Kenyan Communication Ability: Effective Computer Systems Design Analyst Required: No Beliefs That Will Affect Care: None Current Living Situation: Spouse Current Living Situation Comment: Lives with and son Other Information That Helps Us Care for You: No Feels Safe at Home: Yes Safety Concerns: Feels Safe At This Time Assistive Devices: Denture - Upper, Denture - Lower, Prosthesis and Walker Assistive Devices Comment: left leg prosthesis Review of Systems All systems reviewed & are unremarkable except as noted in HPI & below Physical Exam Constitutional: WD/WN, vitals as above Respiratory: normal respiratory effort, lungs clear to auscultation Cardiovascular: RRR, no murmur, no edema Vessels: femoral pulses present; + posterior tibial pulses abnormal and + dorsalis pedis pulses abnormal Right lower extremity lower wound is necrotic with very little granulation tissue present. His foot appears ischemic and slightly mottled. There is chronic subcutaneous tissue around the edges of the wound on his right lower leg. Gastrointestinal (Abdomen): normal bowel sounds, soft, nontender, no hepatosplenomegaly Musculoskeletal: no cyanosis or clubbing, extremities motor strength 5/5 Neurologic: CN's II-XI intact bilaterally and moves all extremities Psychiatric: Orientation: alert and oriented x 3 Results & Data Vital Signs (Past 12 Hours) Vital Signs Temp Pulse Resp BP BP Pulse Ox O2 Del Method 09/29/22 11:09 36.9 C 97 H 18 156/87 H 125/80 95 Room Air
--- NOTE | 2022-09-29 12:42 | History & Physical Bridge Note ---
Date of Service September 29, 2022 History & Physical Bridge Note I have examined the patient, reviewed the History & Physical and in the interval since the performance of the History & Physical I have noted the following changes of clinical significance: no changes noted
[2022-09-29] MEDS ORDERED: fentaNYL citrate PF 100 MCG/2 ML VIAL ONE ×3 (12:56→14:50)
[2022-09-29] MEDS ORDERED: ROPIVACAINE 0.5% 5 MG/ML 30 ML VIAL ONE (12:56)
[2022-09-29] MEDS ORDERED: MIDAZOLAM HCL 1 MG/ML 2ML VIAL ONE (12:56)
[2022-09-29] MEDS ORDERED: ATROPINE SULFATE 0.1 MG/ML 10ML SYR IV PRN (12:57)
[2022-09-29] MEDS ORDERED: fentaNYL citrate PF 100 MCG/2 ML VIAL IV PRN (12:57)
[2022-09-29] MEDS ORDERED: ePHEDrine sulfate 50 MG/ML AMP IV PRN (12:57)
[2022-09-29] MEDS ORDERED: ONDANSETRON INJ 2 MG/ML 2 ML VIAL IV PRN (12:57)
[2022-09-29] MEDS ORDERED: ONDANSETRON INJ 2 MG/ML 2 ML VIAL ONE (13:42)
[2022-09-29] MEDS ORDERED: ePHEDrine sulfate 50 MG/ML SYR ONE (13:42)
[2022-09-29] MEDS ORDERED: PROPOFOL IV EMULSION 10 MG/ML 20 ML VIAL IV ONE (13:42)
[2022-09-29] MEDS ORDERED: DEXAMETHASONE SOD INJ 4 MG/ML VIAL ONE (13:42)
[2022-09-29] MEDS ORDERED: ALBUTEROL HFA 8 GM INHALER INH ONE (14:49)
[2022-09-29] MEDS ORDERED: ALBUT/IPRATROP 3MG/0.5MG NEB 3 ML VIAL INH PRN (15:03)
--- NOTE | 2022-09-29 15:09 | Operative Report ---
Post Operative Report Pre & Post Diagnosis Operation Date: 09/29/22 13:00 Pre-Op Diagnosis: Extremity Atherosclerosis with Resting Pain Post-Op Diagnosis: Extremity Atherosclerosis with Resting Pain I identified the patient and participated in the time-out.: Yes Procedure Operation Date: 09/29/22 13:00 Actual Procedures p Right Below Knee Amputation(Right) - Patrick Bolaños MD Surgeon Patrick Bolaños MD Food Service Attendant Hadley Cross MD Estimated Blood Loss 250 Findings Consistent with Post-Op Diagnosis Good hemostasis at the end of the case Specimens Right leg Anesthesia Type General Complications None immediate Indications This is a 67-year-old male with history of peripheral arterial disease with significant right lower extremity rest pain. He did not have any revascularization option unfortunately and the patient was consented for right below-knee amputation. Description of Procedure Patient was brought to the operating room and placed in supine position. General esthesia was induced by our anesthesia colleagues. The right lower extremity was prepped and draped in standard sterile fashion. A safety timeout was performed to identify patient's name, date of and correct site of the procedure. We made an incision approximately 5 fingerbreadths below the knee on the anterior portion of the right leg. We created a posterior flap that is approximately twice as long as the anterior however that was limited by the presence of open wound on the and inferior medial side of the leg. The GSV was identified and ligated. Used Bovie to incise the fascia above the muscle. Then we incised the muscle layer by layer using Bovie cautery. Anterior tibial vessels bundle was identified and ligated. Minimal arterial bleeding was encountered and was controlled. A periosteal elevator was used to elevate the soft tissue above the tibia. A Gigli saw was used to transect the tibia. We then turned our attention to the fibula. The muscle fibers around the fibula was identified and divided with cautery. The fibula was then transected with a power saw ensuring protection of the skin and the muscle flap. An amputation knife was then used to the flap and the specimen was handed as right leg. Multiple 2-0 Vicryl stitches was used to control the bleeders. The sciatic nerve was identified. a 2-0 silk tie was used to tie it. We then transected the sciatic nerve and it was allowed to retract. The stump was irrigated and hemostasis was achieved with 2-0 Vicryl stitches as well as Bovie cautery. Any extra muscle and tissue was excised and the flap was cut to length. Fascia was approximated with multiple interrupted 2-0 Vicryl stitches. The skin was stapled. Multilayer dressing was applied. All counts were correct. Dr. Bolaños was present for the entirety of the case. I attest to the content of the Intraoperative Record and any orders documented therein. Any exceptions are noted below. Supervising Physician Co-Signing Physician Notes Patrick Bolaños
--- NOTE | 2022-09-29 15:20 | Post Operative Brief Note ---
Immediate Post Op Note v1 Date of Surgery September 29, 2022 Pre & Post Diagnosis Operation Date: 09/29/22 13:00 Pre-Op Diagnosis: Extremity Atherosclerosis with Resting Pain Post-Op Diagnosis: Extremity Atherosclerosis with Resting Pain I identified the patient and participated in the time-out.: Yes Procedure Operation Date: 09/29/22 13:00 Actual Procedures p Right Below Knee Amputation(Right) - Patrick Bolaños MD Surgeon Patrick Bolaños MD Resist Coater Developer Hadley Cross MD Estimated Blood Loss 250 Findings Consistent with Post-Op Diagnosis Anesthesia Type General Complications none Disposition Accompanied Patient To Recovery: No Disposition: Recovery Room
[2022-09-29] MEDS ORDERED: WARFARIN SOD 5 MG TAB PO SCH (15:57)
[2022-09-29 16:32] LABS: Basophils # (auto) 0.02 K/uL (0-0.2); Basophils % (auto) 0.3 %; Eosinophils # (auto) 0.03 K/uL (0-0.50); Eosinophils % (auto) 0.4 %; Hematocrit (blood only) 28.6 % (42.0-52.0); Immature Granulocytes # (auto) 0.06 K/uL (0.01-0.20); Immature Granulocytes % (auto) 0.9 %; Lymphocytes # (auto) 0.81 K/uL (1.2-3.4); Lymphocytes % (auto) 11.7 %; Mean Corpuscular Hemoglobin 31.5 pg (25.0-34.0); Mean Corpuscular Volume 90.2 fL (80.0-100.0); Mean Platelet Volume 8.9 fL (9.4-12.4); Monocytes # (auto) 0.15 K/uL (0.11-0.59); Monocytes % (auto) 2.2 %; Neutrophils # (auto) 5.88 K/uL (1.40-6.50); Neutrophils % (auto) 84.5 %; Platelet Count 198 K/uL (130-400); RDW Coefficient of Variation 14.1 % (11.5-14.5); RDW Standard Deviation 46.9 fL (36.4-46.3); Red Blood Count 3.17 M/uL (4.70-6.10); White Blood Count 6.95 K/ul (4.8-10.8)
--- NOTE | 2022-09-29 17:24 | Anesthesiology Progress Note ---
Date of Service September 29, 2022 Anesthesia Post Procedure Vital Signs Vital Signs: Temp Pulse Pulse Resp BP BP Pulse Ox 09/29/22 17:00 99 H 16 124/71 99 09/29/22 16:29 101 H 16 124/77 98 09/29/22 16:00 36.7 C 100 H 18 139/79 97 09/29/22 15:34 36.2 C L 104 H 20 124/76 96 09/29/22 15:30 36.0 C L 100 H 15 146/73 H 96 09/29/22 15:20 36.0 C L 104 H 17 136/75 96 09/29/22 15:12 36.0 C L 115 H 13 156/92 H 99 09/29/22 11:09 36.9 C 97 H 18 156/87 H 125/80 95 O2 Del Method O2 Flow Rate 09/29/22 17:00 Room Air 09/29/22 16:29 Nasal Cannula 3 09/29/22 16:00 Nasal Cannula 3 09/29/22 15:34 Nasal Cannula 3 09/29/22 15:30 Nasal Cannula 3 09/29/22 15:20 Oxymask 6 09/29/22 15:12 Oxymask 6 09/29/22 11:09 Room Air Pain Intensity Right Foot: Pain Intensity: 0 Transfer of Care Handoff Completed per policy Notes Mental Status: alert / awake / arousable and participated in evaluation Patient Amnestic to Procedure: Yes Nausea / Vomiting: adequately controlled Pain: adequately controlled Airway Patency, RR, SpO2: stable & adequate BP & HR: stable & adequate Hydration State: stable & adequate Anesthetic Complications: no major complications apparent and Pt Satisfied with anesthetic care
[2022-09-29] MEDS: PANTOprazole 40 MG TAB PO SCH (20:23)
[2022-09-29] MEDS: POTASSIUM CHLORIDE 10 MEQ TABCR PO SCH (20:23)
[2022-09-29] MEDS ORDERED: CITALOPRAM 40 MG TAB PO SCH (21:00)
[2022-09-30] MEDS: oxyCODONE HCL IR 5 MG TAB (IMMEDIATE RELEASE) PO PRN ×4 (06:17→22:08)
[2022-09-30 06:49] LABS: Basophils # (auto) 0.01 K/uL (0-0.2); Basophils % (auto) 0.1 %; Immature Granulocytes # (auto) 0.06 K/uL (0.01-0.20); Immature Granulocytes % (auto) 0.6 %; Lymphocytes # (auto) 1.14 K/uL (1.2-3.4); Lymphocytes % (auto) 11.1 %; Mean Corpuscular Hemoglobin 31.4 pg (25.0-34.0); Mean Corpuscular Hgb Conc 34.8 g/dL (32.0-36.0); Mean Corpuscular Volume 90.2 fL (80.0-100.0); Mean Platelet Volume 9.2 fL (9.4-12.4); Monocytes # (auto) 0.76 K/uL (0.11-0.59); Monocytes % (auto) 7.4 %; Neutrophils # (auto) 8.31 K/uL (1.40-6.50); Neutrophils % (auto) 80.8 %; Platelet Count 216 K/uL (130-400); RDW Coefficient of Variation 14.4 % (11.5-14.5); RDW Standard Deviation 46.8 fL (36.4-46.3); Red Blood Count 2.55 M/uL (4.70-6.10); White Blood Count 10.28 K/ul (4.8-10.8)
[2022-09-30] MEDS: MoRPHine SULFATE 4 MG/ML 1 ML CARP\\VIAL IV PRN ×3 (08:49→19:33)
[2022-09-30] MEDS: amLODIPine BESYLATE 5 MG TAB PO SCH (08:49)
[2022-09-30] MEDS: POTASSIUM CHLORIDE 10 MEQ TABCR PO SCH ×2 (08:50→22:09)
[2022-09-30] MEDS: ASPIRIN 81 MG ECTAB PO SCH (08:50)
[2022-09-30] MEDS: BUMETANIDE 1 MG TAB PO SCH (08:50)
[2022-09-30] MEDS: lisinopril 20 MG TAB PO SCH (08:50)
[2022-09-30] MEDS: ATORVASTATIN 20 MG TAB PO SCH (08:50)
[2022-09-30] MEDS: FUROSEMIDE 20 MG TAB PO SCH (08:50)
[2022-09-30] MEDS: PANTOprazole 40 MG TAB PO SCH ×2 (10:08→22:10)
--- NOTE | 2022-09-30 13:17 | Surgery Progress Note ---
Date of Service September 30, 2022 Assessment & Plan (1) Extremity atherosclerosis with resting pain: Plan: Doing well from his amputation Needs to have his pain controlled prior to d/c (2) Acute blood loss as cause of postoperative anemia: Plan: Hgb 8.0 post op. No active bleeding noted. Admission and Anticipated Discharge Date Admission Date: September 29, 2022 Subjective Patient complaining of incisional pain. Taking po meds and iv morphine for it. Physical Exam Constitutional: WD/WN, vitals as above Respiratory: normal respiratory effort; no respiratory distress Cardiovascular: Rate/Rhythm: regular rate and regular rhythm Musculoskeletal: Dressing intact of right bka stump Neurologic: CN's II-XI intact bilaterally and moves all extremities Psychiatric: Orientation: alert and oriented x 3 Results & Data Vital Signs (Past 12 Hours) Vital Signs Temp Pulse Resp BP Pulse Ox O2 Del Method 09/30/22 07:45 Room Air 09/30/22 07:36 36.9 C 92 H 18 156/58 H 94 Room Air 09/30/22 03:44 36.9 C 18 96 Room Air 09/30/22 03:29 38.2 C H 110 H 14 137/72 93 Room Air
[2022-09-30] MEDS: WARFARIN SOD 7.5 MG TAB PO SCH (15:35)
[2022-09-30] MEDS: CITALOPRAM 20 MG TAB PO SCH (22:09)
[2022-10-01] MEDS: MoRPHine SULFATE 4 MG/ML 1 ML CARP\\VIAL IV PRN ×2 (00:21→09:14)
[2022-10-01 07:01] LABS: Hematocrit (blood only) 22.6 % (42.0-52.0); Hemoglobin 7.8 g/dl (14.0-18.0)
[2022-10-01 07:27] LABS: INR 1.5 (0.9-1.1); Prothrombin Time 16.1 Seconds (9.0-12.0)
[2022-10-01] MEDS: oxyCODONE HCL IR 5 MG TAB (IMMEDIATE RELEASE) PO PRN ×3 (07:31→21:53)
[2022-10-01] MEDS: ATORVASTATIN 20 MG TAB PO SCH (09:15)
[2022-10-01] MEDS: BUMETANIDE 1 MG TAB PO SCH (09:15)
[2022-10-01] MEDS: amLODIPine BESYLATE 5 MG TAB PO SCH (09:15)
[2022-10-01] MEDS: ASPIRIN 81 MG ECTAB PO SCH (09:15)
[2022-10-01] MEDS: FUROSEMIDE 20 MG TAB PO SCH (09:16)
[2022-10-01] MEDS: lisinopril 20 MG TAB PO SCH (09:16)
[2022-10-01] MEDS: PANTOprazole 40 MG TAB PO SCH ×2 (09:16→21:54)
[2022-10-01] MEDS: POTASSIUM CHLORIDE 10 MEQ TABCR PO SCH ×2 (09:16→21:54)
--- NOTE | 2022-10-01 11:19 | Surgery Progress Note ---
Date of Service October 01, 2022 Assessment & Plan (1) Extremity atherosclerosis with resting pain: Plan: Doing well from his amputation. No POD#2 Will switch for MS to dialudid for pain control Needs to have his pain controlled prior to d/c Admission and Anticipated Discharge Date Admission Date: September 29, 2022 Subjective Patient complaining of incisional pain. Taking po meds and iv morphine for it. Stump feels better now that dressing was rermoved Physical Exam Constitutional: WD/WN, vitals as above Respiratory: normal respiratory effort; no respiratory distress Cardiovascular: RRR, no murmur, no edema Rate/Rhythm: regular rate and regular rhythm Vessels: femoral pulses present Skin: + incision (right bka stump with good perfusion, healing nicely, no drainage) Neurologic: CN's II-XI intact bilaterally and moves all extremities Psychiatric: Orientation: alert and oriented x 3 Results & Data Vital Signs (Past 12 Hours) Vital Signs Temp Pulse Resp BP Pulse Ox O2 Del Method 10/01/22 07:14 36.8 C 98 H 20 149/69 H 94 Room Air 09/30/22 23:24 96 Room Air
[2022-10-01] MEDS: HYDROmorphone INJ 0.5 MG/0.5 ML SYR IV PRN ×2 (12:00→18:33)
[2022-10-01] MEDS: WARFARIN SOD 7.5 MG TAB PO SCH (15:39)
[2022-10-01] MEDS: CITALOPRAM 20 MG TAB PO SCH (21:54)
[2022-10-02 06:07] LABS: INR 2.2 (0.9-1.1); Prothrombin Time 22.6 Seconds (9.0-12.0)
[2022-10-02] MEDS: oxyCODONE HCL IR 5 MG TAB (IMMEDIATE RELEASE) PO PRN ×3 (08:13→19:47)
[2022-10-02] MEDS: amLODIPine BESYLATE 5 MG TAB PO SCH (08:16)
[2022-10-02] MEDS: ASPIRIN 81 MG ECTAB PO SCH (08:16)
[2022-10-02] MEDS: ATORVASTATIN 20 MG TAB PO SCH (08:17)
[2022-10-02] MEDS: FUROSEMIDE 20 MG TAB PO SCH (08:17)
[2022-10-02] MEDS: lisinopril 20 MG TAB PO SCH (08:17)
[2022-10-02] MEDS: BUMETANIDE 1 MG TAB PO SCH (08:17)
[2022-10-02] MEDS: POTASSIUM CHLORIDE 10 MEQ TABCR PO SCH ×2 (08:18→19:47)
[2022-10-02] MEDS: PANTOprazole 40 MG TAB PO SCH ×2 (08:18→19:47)
[2022-10-02] MEDS: HYDROmorphone INJ 0.5 MG/0.5 ML SYR IV PRN ×3 (10:10→20:56)
[2022-10-02] MEDS: WARFARIN SOD 7.5 MG TAB PO SCH (15:30)
[2022-10-02] MEDS: CITALOPRAM 20 MG TAB PO SCH (19:47)
[2022-10-03] MEDS: oxyCODONE HCL IR 5 MG TAB (IMMEDIATE RELEASE) PO PRN ×2 (07:28→11:47)
[2022-10-03 07:42] LABS: Prothrombin Time 30.5 Seconds (9.0-12.0)
--- NOTE | 2022-10-03 10:07 | Surgery Progress Note ---
Date of Service October 03, 2022 Assessment & Plan (1) Status post below knee amputation of right lower extremity: Plan: Pt now POD #4 after RLE BKA, overall doing well. Pain better controlled and is on oral medications only since last evening. Wishes to go home today. Had conversation with pt again recommending rehab prior to going home, but pt refuses. Will d/c home today. (2) Ischemic leg: Admission and Anticipated Discharge Date Admission Date: September 29, 2022 Subjective 67 yo m POD # 4 after RLE BKA, seen in f/u today. Pt states pain is much improved, and has stopped taking the IV pain medication. Denies any other new concerns. States he wants to go home. Review of Systems Review of Systems: All systems reviewed & are unremarkable except as noted in HPI & below Physical Exam Constitutional: WD/WN, vitals as above Respiratory: normal respiratory effort, lungs clear to auscultation normal respiratory effort; no respiratory distress Cardiovascular: RRR, no murmur, no edema Rate/Rhythm: regular rate and regular rhythm Vessels: femoral pulses present; + dorsalis pedis pulses abnormal (BL amputations) Gastrointestinal (Abdomen): normal bowel sounds, soft, nontender, no hepatosplenomegaly Musculoskeletal: no cyanosis or clubbing, extremities motor strength 5/5 Skin: + incision (right bka stump with good perfusion, healing nicely, no drainage) Neurologic: CN's II-XI intact bilaterally and moves all extremities Psychiatric: Orientation: alert and oriented x 3 Results & Data Vital Signs (Past 12 Hours) Vital Signs Temp Pulse Resp BP Pulse Ox O2 Del Method 10/03/22 07:04 36.9 C 100 H 18 134/76 98 Room Air
[2022-10-03] MEDS: PANTOprazole 40 MG TAB PO SCH (10:13)
[2022-10-03] MEDS: FUROSEMIDE 20 MG TAB PO SCH (10:13)
[2022-10-03] MEDS: BUMETANIDE 1 MG TAB PO SCH (10:13)
[2022-10-03] MEDS: amLODIPine BESYLATE 5 MG TAB PO SCH (10:14)
[2022-10-03] MEDS: ATORVASTATIN 20 MG TAB PO SCH (10:14)
[2022-10-03] MEDS: ASPIRIN 81 MG ECTAB PO SCH (10:14)
[2022-10-03] MEDS: POTASSIUM CHLORIDE 10 MEQ TABCR PO SCH (10:14)
[2022-10-03] MEDS: lisinopril 20 MG TAB PO SCH (10:14)
--- NOTE | 2022-10-07 08:37 | Discharge Summary ---
Date of Service October 07, 2022 Admission HPI Per Admitting Provider I had the pleasure of seeing Americo today for follow-up. As you know he is a 87-year-old gentleman who underwent exploration of his infrapopliteal arteries of his right lower extremity for an attempted bypass for limb salvage. His vessels were not usable. He has a lower leg wound on the right side which is nonhealing as well as developing worsening rest pain in the right foot. He claims that his right foot pain wakes him up frequently however his says he wakes up few times at night due to pain in the right foot. Admission Exam Per Admitting Provider Constitutional: WD/WN, vitals as above Respiratory: normal respiratory effort, lungs clear to auscultation Cardiovascular: RRR, no murmur, no edema Vessels: femoral pulses present; + posterior tibial pulses abnormal and + dorsalis pedis pulses abnormal Right lower extremity lower wound is necrotic with very little granulation tissue present. His foot appears ischemic and slightly mottled. There is chronic subcutaneous tissue around the edges of the wound on his right lower leg. Gastrointestinal (Abdomen): normal bowel sounds, soft, nontender, no hepatosplenomegaly Musculoskeletal: no cyanosis or clubbing, extremities motor strength 5/5 Neurologic: CN's II-XI intact bilaterally and moves all extremities Psychiatric: Orientation: alert and oriented x 3 Principal Diagnosis 1. s/p BKA RLE 2. Ischemic RLE Discharge Exam Constitutional WD/WN, vitals as above Respiratory normal respiratory effort, lungs clear to auscultation normal respiratory effort; no respiratory distress Cardiovascular RRR, no murmur, no edema Rate/Rhythm: regular rate and regular rhythm Vessels: femoral pulses present; + dorsalis pedis pulses abnormal (BL amputations) Gastrointestinal (Abdomen) normal bowel sounds, soft, nontender, no hepatosplenomegaly Musculoskeletal no cyanosis or clubbing, extremities motor strength 5/5 Skin + incision (right bka stump with good perfusion, healing nicely, no drainage) Neurologic CN's II-XI intact bilaterally and moves all extremities Psychiatric Orientation: alert and oriented x 3 Discharge Data Allergies Allergy/AdvReac Type Severity Reaction Status Date / Time No Known Allergies Allergy Verified 09/29/22 11:08 Procedures Performed Operation Date: 09/29/22 13:00 Actual Procedures p Right Below Knee Amputation(Right) - Patrick Bolaños MD Ordered Studies 09/29/22 05:00 US - OR guided needle placemen Routine 09/29/22 13:00 US - OR guided needle placemen Routine Hospital Course (1) Status post below knee amputation of right lower extremity: Pt now POD #4 after RLE BKA, overall doing well. Pain better controlled and is on oral medications only since last evening. Wishes to go home today. Had conversation with pt again recommending rehab prior to going home, but pt refuses. Will d/c home today. (2) Ischemic leg: see above Total Time Total Time Spent Total Time Spent (In Minutes): 0 Discharge Plan Discharge Items Patient Disposition: Home - Home Health Services Reason For Visit: Rest Pain Right Foot Discharge Diagnosis: 1. s/p RLE BKA 2. Ischemic RLE Activity: Per Instructions section Non-emergency contact: Primary Care Provider and Surgeon Call non-emergency contact if: you have any medication questions, your pain is not controlled, your pain is worsening, your pain is concerning for you, you have a fever, your wound has increased redness and your wound has increased drainage Follow-up/Referrals: Patrick Bolaños MD [Physician] - 10/13/22 9:00 am (Follow up with Dr Bolaños or Shannan Velasquez PA-C, in 2-3 weeks. ) Gagan Dee MD [Primary Care Provider] - 10/06/22 10:00 am (Follow up with your PCP within 2 weeks) Diet: Heart Healthy Addtl Attending Provider Instructions: ACTIVITY RECOMMENDATIONS: See Above SPECIAL CARE INSTRUCTIONS: Call your doctor if: * Temperature above 101 degrees * Pain not relieved by pain medicine ordered * There is increased drainage or redness from any incision * You have any unanswered questions or concerns. Pending Studies at Discharge: No Stand-Alone Forms: My [employer], Smoking Cessation Medications and DC Order Prescriptions: Continued furosemide 40 mg Tablet 20 mg PO QAM citalopram 40 mg Tablet 10 mg PO HS lisinopril 20 mg Tablet 20 mg PO QAM warfarin 5 mg Tablet See Rx Instructions .ROUTE .COMPLEX Rx Instructions: 7.5mg 5x/week, 10mg 2x/week omeprazole 20 mg Tablet,Delayed Release (Dr/Ec) 20 mg PO BID acetaminophen 325 mg Tablet 650 mg PO Q4H PRN (Reason: pain) Qty: 30 0RF Rx Instructions: OTC atorvastatin 20 mg Tablet 20 mg PO QAM Qty: 30 0RF aspirin 81 mg Tablet,Delayed Release (Dr/Ec) 81 mg PO QAM Qty: 30 0RF Rx Instructions: OTC potassium chloride 10 mEq Tablet,Er Particles/Crystals 10 meq PO BID Qty: 30 0RF amlodipine 5 mg Tablet 5 mg PO DAILY bumetanide 0.5 mg Tablet 0.5 mg PO DAILY oxycodone 5 mg tablet 7.5 mg PO Q4H PRN (Reason: moderate-severe pain) Discharge Orders: Discharge Order (Routine); Ordered 10/03/22 Ordered By: Shannan Herring/Other Patient Handouts: Pulmonary Embolism, What to Know When TakingWarfarin, Amputation Residual Limb Care, Amputation Surg The Months After Admission Data Admit Date/Time: 09/29/22 12:56 Attending Provider: Patrick Bolaños Admit Provider: Partick Bolaños Primary Care Provider: Gagan Dee Other Interventions: Discharge Summary Assessment (RN) Last Done: 10/03/22 11:10
== END 2022-10-03 14:52 | disposition home health service (06) | DRG 240 ==
LOC: ASU 10:28 → 3E 12:56